=== PATIENT | female | born 1950 | race Caucasian/White ===

== ENCOUNTER → 2017-01-05 | Outpatient (CLI) | payer MEDICARE, OTHER | LOC: MW.CHFP 08:00 | PROVIDERS: ATTEND Emergency Medicine | DX: NODX10 (principal) ==

== ENCOUNTER → 2017-01-12 | Outpatient (CLI) | payer MEDICARE, OTHER | LOC: MW.CHFP 08:00 | PROVIDERS: ATTEND Emergency Medicine | DX: NODX10 (principal) ==

== ENCOUNTER → 2017-01-20 | Outpatient (CLI) | payer MEDICARE, OTHER | LOC: MW.CHFP 08:00 | PROVIDERS: ATTEND Emergency Medicine | DX: NODX10 (principal) ==

== ENCOUNTER → 2017-02-18 | Outpatient (CLI) | payer MEDICARE, OTHER | LOC: MW.CHFP 08:00 | PROVIDERS: ATTEND Emergency Medicine | DX: NODX10 (principal) ==

== ENCOUNTER 2017-06-26 03:12 | Emergency (ER) | payer MEDICARE, OTHER ==
[2017-06-26] MEDS ORDERED: Sodium Chloride 0.9% 1,000 ML IV ONE (04:27)
--- NOTE | 2017-06-26 05:19 | EDM.PDOC ---
ED HPI GENERAL MEDICAL PROBLEM - General Chief Complaint: General Stated Complaint: LOW BLOOD SUGAR Time Seen by Provider: 06/26/17 04:14 Source of Information: Reports: Patient History Limitations: Reports: No Limitations - History of Present Illness INITIAL COMMENTS - FREE TEXT/NARRATIVE: HISTORY AND PHYSICAL: History of present illness: [67-year-old female with a history of diabetes now presents emergency departmentafter an episode of hypoglycemia. Patient states she awakened and felt funny so she checked her glucose it was 53. She ateto chocolate bars and drank a Coke and then came to the emergency department. She states she still feels a little funny. No chest pain or shortness of breath. No headache or stiff neck denies abdominal pain normal bowel bladder habits. No focal neurologic complaint] Review of systems: As per history of present illness and below otherwise all systems reviewed and negative. Past medical history: As per history of present illness and as reviewed below otherwise noncontributory. Surgical history: As per history of present illness and as reviewed below otherwise noncontributory. Social history: No reported history of drug or alcohol abuse. Family history: As per history of present illness and as reviewed below otherwise noncontributory. Physical exam:well-appearing 67-year-old female no acute distress mildly dry mucous membranes otherwise benign exam HEENT: Atraumatic, normocephalic, pupils reactive, negative for conjunctival pallor or scleral icterus, mucous membranes moist, throat clear, neck supple, nontender, trachea midline. Lungs: Clear to auscultation, breath sounds equal bilaterally, chest nontender. Heart: S1S2, regular, negative for clicks, rubs, or JVD. Abdomen: Soft, nondistended, nontender. Negative for masses or hepatosplenomegaly. Negative for costovertebral tenderness. Pelvis: Stable nontender. Genitourinary: Deferred. Rectal: Deferred. Extremities: Atraumatic, negative for cords or calf pain. Neurovascular unremarkable. Neuro: Awake, alert, oriented. Cranial nerves II through XII unremarkable. Cerebellum unremarkable. Motor and sensory unremarkable throughout. Exam nonfocal. Diagnostics: [EKG normal sinus rhythm at 61 normal axis no STEMI-Interpreted by me Chest x-ray no acute disease interpreted by me Therapeutics: [IV fluids administered] Impression: [] Plan: [signs and symptoms consistent with symptomatic hypoglycemia and mild dehydration with dry mucous membranes. Urinalysis positive for UTI. Rocephin administered and Keflex will be prescribed.Patient hydratedShe feels baseline after IV fluids. Glucose stable after patient self medication with 2 chocolate bars and a Coca-Cola. No further workup or treatment indicated at this time. Patient agrees with outpatient follow-up and strict return precautions given] Definitive disposition and diagnosis as appropriate pending reevaluation and review of above. no pain Pain Score (Numeric/FACES): 0 - Related Data Allergies Allergy/AdvReac Type Severity Reaction Status Date / Time No Known Allergies Allergy Verified 06/26/17 03:18 Home Meds: Home Meds Ciprofloxacin HCl [Cipro] 500 mg PO BID #14 tablet 09/02/16 [Rx] Insulin Aspart [NovoLOG] units SQ ASDIRECTED 09/02/16 [History] Meclizine [Antivert] 25 mg PO TID PRN #12 tablet 09/02/16 [Rx] Tresiba 28 units SQ BEDTIME 09/02/16 [History] Cephalexin [Keflex] 500 mg PO QID 10 Days #40 capsule 06/26/17 [Rx] Insulin Npl/Insulin Lispro [HumaLOG Mix 50-50 Kwikpen] 1 injection SQ ASDIRECTED 06/26/17 [History] Past Medical History HEENT History: Reports: None Cardiovascular History: Reports: High Cholesterol Respiratory History: Reports: None Gastrointestinal History: Reports: None Genitourinary History: Reports: None 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: Musculoskeletal History: Reports: None Neurological History: Reports: None Psychiatric History: Reports: None Endocrine/Metabolic History: Reports: Diabetes, Type II Hematologic History: Reports: None Immunologic History: Reports: None Oncologic (Cancer) History: Reports: None Dermatologic History: Reports: None - Infectious Disease History Infectious Disease History: Reports: Chicken Pox, Measles, Mumps - Past Surgical History Head Surgeries/Procedures: Reports: None HEENT Surgical History: Reports: None GI Surgical History: Reports: Appendectomy Female Surgical History: Reports: Hysterectomy Social & Family History - Family History Family Medical History: Noncontributory Endocrine/Metabolic: Reports: Diabetes, Type I, Diabetes, type II - Tobacco Use Smoking Status *Q: Never Smoker Second Hand Smoke Exposure: No - Caffeine Use Caffeine Use: Reports: Soda - Recreational Drug Use Recreational Drug Use: No ED ROS GENERAL - Review of Systems Review Of Systems: See Below (history of present illness) ED EXAM, GENERAL - Physical Exam Exam: See Below (history of present illness) Course - Vital Signs Last Recorded V/S: Last Vital Signs Temp 36.6 C 06/26/17 04:59 Pulse 62 06/26/17 04:59 Resp 17 06/26/17 04:59 BP 153/71 H 06/26/17 04:59 Pulse Ox 98 06/26/17 04:59 - Orders/Labs/Meds Orders: Active Orders 24 hr Category Date Time Status EKG Documentation Completion [RC] STAT Care 06/26/17 04:26 Active Chest 1V Frontal [CR] Stat Exams 06/26/17 05:26 Taken cefTRIAXone [Rocephin in Dextrose,Iso-Osm 1 GM/50 ML] 1 Med 06/26/17 06:27 Ordered gm Premix Bag 1 bag IV ONETIME Peripheral IV Insertion Adult [OM.PC] Stat Oth 06/26/17 04:26 Ordered Medication Orders Ceftriaxone Sodium/Dextrose 1 (gm/ Premix) 50 mls @ 100 mls/hr IV ONETIME ONE Stop: 06/26/17 06:56 Labs: Laboratory Tests 06/26/17 06/26/17 06/26/17 Range/Units 03:21 04:45 04:45 WBC 12.40 H (4.0-11.0) K/uL RBC 4.28 L (4.30-5.90) M/uL Hgb 12.6 (12.0-16.0) g/dL Hct 38.7 (36.0-46.0) % MCV 90.4 (80.0-98.0) fL MCH 29.4 (27.0-32.0) pg MCHC 32.6 (31.0-37.0) g/dL RDW Std Deviation 48.4 (28.0-62.0) fl RDW Coeff of Mehreen 15 (11.0-15.0) % Plt Count 188 (150-400) K/uL MPV 8.70 (7.40-12.00) fL Neut % (Auto) 81.6 H (48.0-80.0) % Lymph % (Auto) 11.9 L (16.0-40.0) % [place] % (Auto) 4.5 (0.0-15.0) % Eos % (Auto) 1.7 (0.0-7.0) % Baso % (Auto) 0.3 (0.0-1.5) % Neut # (Auto) 10.1 H (1.4-5.7) K/uL Lymph # (Auto) 1.5 (0.6-2.4) K/uL [place] # (Auto) 0.6 (0.0-0.8) K/uL Eos # (Auto) 0.2 (0.0-0.7) K/uL Baso # (Auto) 0.0 (0.0-0.1) K/uL Nucleated RBC % 0.0 /100WBC Nucleated RBCs # 0 K/uL Sodium 142 (136-146) mmol/L Potassium 4.0 (3.5-5.1) mmol/L Chloride 110 (98-110) mmol/L Carbon Dioxide 25 (21-31) mmol/L BUN 17 (6.0-23.0) mg/dL Creatinine 1.3 (0.6-1.5) mg/dL Est Cr Clr Drug Dosing 36.75 mL/min Estimated GFR (MDRD) 40.6 ml/min Glucose 159 H (60-110) mg/dL POC Glucose 247 H (60-110) mg/dL Calcium 9.1 (8.8-10.8) mg/dL Total Bilirubin 0.3 (0.1-1.5) mg/dL AST 16 (5-40) IU/L ALT 17 (8-54) IU/L Alkaline Phosphatase 89 (40-150) Troponin I (0.0-0.29) NG/ML Total Protein 6.7 (6.0-8.0) g/dL Albumin 3.8 (3.4-4.8) g/dL Globulin 2.9 (2.0-3.5) g/dL Albumin/Globulin Ratio 1.3 (1.3-2.8) Urine Color Urine Appearance Urine pH (5.0-8.0) Ur Specific [place] (1.001-1.035) Urine Protein (NEGATIVE) mg/dL Urine Glucose (UA) (NEGATIVE) mg/dL Urine Ketones (NEGATIVE) mg/dL Urine Occult Blood (NEGATIVE) Urine Nitrite (NEGATIVE) Urine Bilirubin (NEGATIVE) Urine Urobilinogen (<2.0) EU/dL Ur Leukocyte Esterase (NEGATIVE) Urine RBC (0-2/HPF) Urine WBC (0-5/HPF) Ur Epithelial Cells (NONE-FEW) Urine Bacteria (NEGATIVE) 06/26/17 06/26/17 Range/Units 04:45 05:03 WBC (4.0-11.0) K/uL RBC (4.30-5.90) M/uL Hgb (12.0-16.0) g/dL Hct (36.0-46.0) % MCV (80.0-98.0) fL MCH (27.0-32.0) pg MCHC (31.0-37.0) g/dL RDW Std Deviation (28.0-62.0) fl RDW Coeff of Mehreen (11.0-15.0) % Plt Count (150-400) K/uL MPV (7.40-12.00) fL Neut % (Auto) (48.0-80.0) % Lymph % (Auto) (16.0-40.0) % [place] % (Auto) (0.0-15.0) % Eos % (Auto) (0.0-7.0) % Baso % (Auto) (0.0-1.5) % Neut # (Auto) (1.4-5.7) K/uL Lymph # (Auto) (0.6-2.4) K/uL [place] # (Auto) (0.0-0.8) K/uL Eos # (Auto) (0.0-0.7) K/uL Baso # (Auto) (0.0-0.1) K/uL Nucleated RBC % /100WBC Nucleated RBCs # K/uL Sodium (136-146) mmol/L Potassium (3.5-5.1) mmol/L Chloride (98-110) mmol/L Carbon Dioxide (21-31) mmol/L BUN (6.0-23.0) mg/dL Creatinine (0.6-1.5) mg/dL Est Cr Clr Drug Dosing mL/min Estimated GFR (MDRD) ml/min Glucose (60-110) mg/dL POC Glucose (60-110) mg/dL Calcium (8.8-10.8) mg/dL Total Bilirubin (0.1-1.5) mg/dL AST (5-40) IU/L ALT (8-54) IU/L Alkaline Phosphatase (40-150) Troponin I < 0.10 (0.0-0.29) NG/ML Total Protein (6.0-8.0) g/dL Albumin (3.4-4.8) g/dL Globulin (2.0-3.5) g/dL Albumin/Globulin Ratio (1.3-2.8) Urine Color YELLOW Urine Appearance SLT CLOUDY Urine pH 5.0 (5.0-8.0) Ur Specific [place] >= 1.030 (1.001-1.035) Urine Protein NEGATIVE (NEGATIVE) mg/dL Urine Glucose (UA) NEGATIVE (NEGATIVE) mg/dL Urine Ketones NEGATIVE (NEGATIVE) mg/dL Urine Occult Blood TRACE-LYSED (NEGATIVE) Urine Nitrite NEGATIVE (NEGATIVE) Urine Bilirubin NEGATIVE (NEGATIVE) Urine Urobilinogen 0.2 (<2.0) EU/dL Ur Leukocyte Esterase MODERATE (NEGATIVE) Urine RBC 1-5 (0-2/HPF) Urine WBC 40-50 (0-5/HPF) Ur Epithelial Cells FEW (NONE-FEW) Urine Bacteria 2+ H (NEGATIVE) Meds: Medications Generic Name Dose Route Start Last Admin Trade Name Freq PRN Reason Stop Dose Admin Ceftriaxone Sodium/Dextrose 1 50 mls @ 100 mls/hr 06/26/17 06:27 gm/ Premix IV 06/26/17 06:56 ONETIME ONE Discontinued Medications Generic Name Dose Route Start Last Admin Trade Name Freq PRN Reason Stop Dose Admin Sodium Chloride 1,000 mls @ 999 mls/hr 06/26/17 04:27 06/26/17 04:55 Normal Saline IV 06/26/17 05:27 999 mls/hr STAT ONE Administration Departure - Departure Time of Disposition: 06:30 Disposition: Home, Self-Care 01 Condition: Good Clinical Impression: Hypoglycemia, Hypoglycemia associated with diabetes, Mild dehydration Urinary tract infection Qualifiers: Urinary tract infection type: site unspecified Hematuria presence: without hematuria Qualified Code(s): N39.0 - Urinary tract infection, site not specified - Discharge Information Referrals: PCP,None [Primary Care Provider] - Forms: ED Department Discharge Additional Instructions: You have experienced symptomatic hypoglycemia this evening. This means your blood glucose was low enough to cause you to feel symptoms in this case of headedness. You were also mildly dehydrated and we have addressed that with IV fluids. Continue your diabetic regimen as previously prescribed and be sure to be vigilant about eating adequately in the setting of insulin use. closely surveilled your blood glucose frequently and Follow-up with your doctor in the morning and return immediately for new severe or worsening symptoms. Your urinalysis suggested that you have urinary tract infection. Finish Keflex as prescribed and follow-up with your doctor. - My Orders Last 24 Hours: My Active Orders 06/26/17 04:26 EKG Documentation Completion [RC] STAT Peripheral IV Insertion Adult [OM.PC] Stat 06/26/17 05:26 Chest 1V Frontal [CR] Stat 06/26/17 06:27 cefTRIAXone [Rocephin in Dextrose,Iso-Osm 1 GM/50 ML] 1 gm Premix Bag 1 bag IV ONETIME - Assessment/Plan Last 24 Hours: My Active Orders 06/26/17 04:26 EKG Documentation Completion [RC] STAT Peripheral IV Insertion Adult [OM.PC] Stat 06/26/17 05:26 Chest 1V Frontal [CR] Stat 06/26/17 06:27 cefTRIAXone [Rocephin in Dextrose,Iso-Osm 1 GM/50 ML] 1 gm Premix Bag 1 bag IV ONETIME
[2017-06-26] MEDS ORDERED: cefTRIAXone 1 GM in Premix Bag 1 BAG IV ONE (06:27)
[2017-06-26 07:14] VITALS: BP 140/65
--- NOTE | 2017-06-27 14:32 | CR ---
EXAM DATE: 06/26/17 PATIENT'S AGE: 67 Patient: GEOVANNA GONZALES Facility: [place], [place] Site . Site : 1950 Study: XRay Chest [id number]/1/2017 5:50:31 AM Ordering Physician: Jarod Franklin Final Report: Indication: Dizziness and low blood sugar. Technique: Upright portable AP image of the chest. Comparison: 05/05/2011. Findings: New medial right base opacity due to atelectasis or pneumonia. Lungs otherwise clear. No pleural effusion. Heart size and pulmonary vasculature within normal limits. No significant bony abnormality. Impression: New medial right base opacity due to atelectasis or pneumonia. Dictated by Tre Rick MD @ Jun 26 2017 7:30AM (Electronic Signature) Report Signed by Proxy. DAVID
== END 2017-06-26 07:10 | disposition home or self-care (01) ==
LOC: MW.ED 03:12
DX: E11.649 Type 2 diabetes mellitus with hypoglycemia without coma (principal); E86.0 Dehydration; N39.0 Urinary tract infection, site not specified; Z79.4 Long term (current) use of insulin; Z79.899 Other long term (current) drug therapy; Z90.49 Acquired absence of other specified parts of digestive tract; Z90.710 Acquired absence of both cervix and uterus
CPT/HCPCS: 71010; 80053; 81001; 82962; 84484; 85025; 93005; 96361; 96365; 99284; J0696; J7040; 99283

== ENCOUNTER 2017-07-30 02:56 | Emergency (ER) | payer MEDICARE, OTHER ==
[2017-07-30] MEDS ORDERED: Sodium Chloride 0.9% 1,000 ML IV ONE (03:09)
--- NOTE | 2017-07-30 03:12 | EDM.PDOC ---
ED HPI GENERAL MEDICAL PROBLEM - General Chief Complaint: Neuro Symptoms/Deficits Stated Complaint: FEELING ILL Time Seen by Provider: 07/30/17 03:10 - History of Present Illness INITIAL COMMENTS - FREE TEXT/NARRATIVE: HISTORY AND PHYSICAL: History of present illness: Patient is a 67-year-old white female history of diabetes who presents with concern of dizziness this is vaguely describes she noted it tonight when she was folding clothes and doing some routine housework from prior review of records seems she has had this in the past has been on meclizine she denies numbness weakness chest pain shortness breath or other concern Review of systems: As per history of present illness and below otherwise all systems reviewed and negative. Past medical history: As per history of present illness and as reviewed below otherwise noncontributory. Surgical history: As per history of present illness and as reviewed below otherwise noncontributory. Social history: No reported history of drug or alcohol abuse. Family history: As per history of present illness and as reviewed below otherwise noncontributory. Physical exam: HEENT: Atraumatic, normocephalic, pupils reactive, negative for conjunctival pallor or scleral icterus, mucous membranes moist, throat clear, neck supple, nontender, trachea midline. Lungs: Clear to auscultation, breath sounds equal bilaterally, chest nontender. Heart: S1S2, regular, negative for clicks, rubs, or JVD. Abdomen: Soft, nondistended, nontender. Negative for masses or hepatosplenomegaly. Negative for costovertebral tenderness. Pelvis: Stable nontender. Genitourinary: Deferred. Rectal: Deferred. Extremities: Atraumatic, negative for cords or calf pain. Neurovascular unremarkable. Neuro: Awake, alert, oriented. Cranial nerves II through XII unremarkable. Cerebellum unremarkable. Motor and sensory unremarkable throughout. Exam nonfocal. Diagnostics: CBC CMP troponin PT/INR chest x-ray EKG CT brain Therapeutics: Normal saline 1 L bolus Impression: #1 dizziness #2 history of diabetes Definitive disposition and diagnosis as appropriate pending reevaluation and review of above. - Related Data Allergies Allergy/AdvReac Type Severity Reaction Status Date / Time No Known Allergies Allergy Verified 07/30/17 03:14 Home Meds: Home Meds Insulin Aspart [NovoLOG] 0 units SQ ASDIRECTED 09/02/16 [History] Tresiba 28 units SQ BEDTIME 09/02/16 [History] Insulin Npl/Insulin Lispro [HumaLOG Mix 50-50 Kwikpen] 0 unit SQ ASDIRECTED 10/12 [History] Simvastatin [Zocor] 0 mg PO DAILY 07/30/17 [History] Past Medical History HEENT History: Reports: None Cardiovascular History: Reports: High Cholesterol Respiratory History: Reports: None Gastrointestinal History: Reports: None Genitourinary History: Reports: None 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: Musculoskeletal History: Reports: None Neurological History: Reports: None Psychiatric History: Reports: None Endocrine/Metabolic History: Reports: Diabetes, Type II Hematologic History: Reports: None Immunologic History: Reports: None Oncologic (Cancer) History: Reports: None Dermatologic History: Reports: None - Infectious Disease History Infectious Disease History: Reports: Chicken Pox, Measles, Mumps - Past Surgical History Head Surgeries/Procedures: Reports: None HEENT Surgical History: Reports: None GI Surgical History: Reports: Appendectomy Female Surgical History: Reports: Hysterectomy Social & Family History - Family History Family Medical History: Noncontributory Endocrine/Metabolic: Reports: Diabetes, Type I, Diabetes, type II - Tobacco Use Smoking Status *Q: Never Smoker Second Hand Smoke Exposure: No - Caffeine Use Caffeine Use: Reports: Soda - Recreational Drug Use Recreational Drug Use: No ED ROS GENERAL - Review of Systems Review Of Systems: ROS reveals no pertinent complaints other than HPI. ED EXAM, GENERAL - Physical Exam Exam: See Below (See dictated) Course - Vital Signs Text/Narrative:: Patient's course in emergency room is nonremarkable I reviewed diagnostics with patient and discussed admission for observation patient declined and requested discharge home she feels markedly improved will follow up with primary medical doctor Last Recorded V/S: Last Vital Signs Temp 35.9 C 07/30/17 03:05 Pulse 73 07/30/17 03:05 Resp 18 07/30/17 03:05 BP 142/70 H 07/30/17 03:05 Pulse Ox 98 07/30/17 03:05 - Orders/Labs/Meds Orders: Active Orders 24 hr Category Date Time Status Chest 1V Frontal [CR] Stat Exams 07/30/17 03:11 Taken Head wo Cont [CT] Stat Exams 07/30/17 03:11 Taken Labs: Laboratory Tests 07/30/17 07/30/17 07/30/17 Range/Units 04:00 04:00 04:00 WBC 8.44 (4.0-11.0) K/uL RBC 4.16 L (4.30-5.90) M/uL Hgb 12.1 (12.0-16.0) g/dL Hct 37.6 (36.0-46.0) % MCV 90.4 (80.0-98.0) fL MCH 29.1 (27.0-32.0) pg MCHC 32.2 (31.0-37.0) g/dL RDW Std Deviation 46.5 (28.0-62.0) fl RDW Coeff of Mehreen 14 (11.0-15.0) % Plt Count 191 (150-400) K/uL MPV 8.50 (7.40-12.00) fL Neut % (Auto) 82.3 H (48.0-80.0) % Lymph % (Auto) 10.8 L (16.0-40.0) % [place] % (Auto) 6.0 (0.0-15.0) % Eos % (Auto) 0.5 (0.0-7.0) % Baso % (Auto) 0.4 (0.0-1.5) % Neut # (Auto) 7.0 H (1.4-5.7) K/uL Lymph # (Auto) 0.9 (0.6-2.4) K/uL [place] # (Auto) 0.5 (0.0-0.8) K/uL Eos # (Auto) 0.0 (0.0-0.7) K/uL Baso # (Auto) 0.0 (0.0-0.1) K/uL Nucleated RBC % 0.0 /100WBC Nucleated RBCs # 0 K/uL INR 0.99 (0.86-1.11) Sodium 142 (136-146) mmol/L Potassium 4.2 (3.5-5.1) mmol/L Chloride 108 (98-110) mmol/L Carbon Dioxide 25 (21-31) mmol/L BUN 11 (6.0-23.0) mg/dL Creatinine 1.1 (0.6-1.5) mg/dL Est Cr Clr Drug Dosing 43.43 mL/min Estimated GFR (MDRD) 49.2 ml/min Glucose 114 H (60-110) mg/dL Calcium 9.0 (8.8-10.8) mg/dL Total Bilirubin 0.6 (0.1-1.5) mg/dL AST 25 (5-40) IU/L ALT 21 (8-54) IU/L Alkaline Phosphatase 76 (40-150) Troponin I < 0.10 (0.0-0.29) NG/ML Total Protein 6.2 (6.0-8.0) g/dL Albumin 3.5 (3.4-4.8) g/dL Globulin 2.7 (2.0-3.5) g/dL Albumin/Globulin Ratio 1.3 (1.3-2.8) Meds: Medications Discontinued Medications Generic Name Dose Route Start Last Admin Trade Name Freq PRN Reason Stop Dose Admin Sodium Chloride 1,000 mls @ 999 mls/hr 07/30/17 03:09 07/30/17 03:25 Normal Saline IV 07/30/17 04:09 999 mls/hr .Bolus ONE Administration Departure - Departure Time of Disposition: 06:46 Disposition: Home, Self-Care 01 Condition: Good Clinical Impression: Dizziness, History of diabetes mellitus - Discharge Information Referrals: PCP,None [Primary Care Provider] - Forms: ED Department Discharge Additional Instructions: The following information is given to patients seen in the emergency department who are being discharged to home. This information is to outline your options for follow-up care. We provide all patients seen in our emergency department with a follow-up referral. The need for follow-up, as well as the timing and circumstances, are variable depending upon the specifics of your emergency department visit. If you don't have a primary care physician on staff, we will provide you with a referral. We always advise you to contact your personal physician following an emergency department visit to inform them of the circumstance of the visit and for follow-up with them and/or the need for any referrals to a consulting specialist. The emergency department will also refer you to a specialist when appropriate. This referral assures that you have the opportunity for followup care with a specialist. All of these measure are taken in an effort to provide you with optimal care, which includes your followup. Under all circumstances we always encourage you to contact your private physician who remains a resource for coordinating your care. When calling for followup care, please make the office aware that this follow-up is from your recent emergency room visit. If for any reason you are refused follow-up, please contact the [facility] emergency department at and asked to speak to the emergency department charge nurse. Follow-up primary medical doctor 1-2 days return as needed as discussed continue current medication - My Orders Last 24 Hours: My Active Orders 07/30/17 03:11 Chest 1V Frontal [CR] Stat Head wo Cont [CT] Stat - Assessment/Plan Last 24 Hours: My Active Orders 07/30/17 03:11 Chest 1V Frontal [CR] Stat Head wo Cont [CT] Stat
[2017-07-30 04:33] LABS: CHLORIDE,CL 108 mmol/L (98-110); SODIUM,NA 142 mmol/L (136-146)
[2017-07-30 07:46] VITALS: BP 156/68
--- NOTE | 2017-07-30 14:38 | CR ---
EXAM DATE: 07/30/17 PATIENT'S AGE: 67 Patient: GEOVANNA GONZALES Facility: [place], [place] Site . Site : 1950 Study: XRay Chest [id number] 4:33:19 AM Ordering Physician: Sorin Franklin Final Report: Indication: Dizziness Technique: Chest 1 view Comparison: June 26, 2017 Findings/Impression: Stable cardiomediastinal silhouette. Clear lungs and pleural spaces. Osseous structures are intact. Dictated by Arlette Poole MD @ Jul 30 2017 4:51AM (Electronic Signature) Report Signed by Proxy. [facility] SYSTEMDolores
--- NOTE | 2017-07-30 14:39 | CT ---
EXAM DATE: 07/30/17 PATIENT'S AGE: 67 Patient: GEOVANNA GONZALES Facility: [place], [place] Site . Site : 1950 Study: CT Head [id number]/4/2017 5:01:37 AM Ordering Physician: Sorin Frankiln Final Report: INDICATION: Dizziness TECHNIQUE: Head CT without contrast. COMPARISON: September 02, 2016 FINDINGS: CSF spaces: Within normal limits for age. Brain parenchyma: There are nonspecific low attenuation white matter changes consistent with chronic microvascular disease. No sign of mass, hemorrhage, or midline shift. Remote lacunar infarction in the left basal ganglia. Skull base and calvarium: The visualized paranasal sinuses and mastoid air cells demonstrate no acute or significant findings. The visualized orbits are grossly unremarkable. No skull fractures. There is intracranial atherosclerosis. IMPRESSION: 1. No acute findings. 2. Nonspecific white matter disease, typical of chronic microvascular disease. Please note that all CT scans at this facility use dose modulation, iterative reconstruction, and/or weight-based dosing when appropriate to reduce radiation dose to as low as reasonably achievable. Dictated by Arlette Poole MD @ Jul 30 2017 5:53AM (Electronic Signature) Report Signed by Proxy. [facility]
== END 2017-07-30 07:15 | disposition home or self-care (01) ==
LOC: MW.ED 02:56
DX: R42 Dizziness and giddiness (principal); E11.9 Type 2 diabetes mellitus without complications; Z79.4 Long term (current) use of insulin
CPT/HCPCS: 36415; 70450; 71010; 80053; 84484; 85025; 85610; 93005; 96360; 96361; 99284; J7040; 99283

== ENCOUNTER 2018-03-29 15:40 | Emergency (ER) | payer MEDICARE, OTHER ==
[2018-03-29] MEDS ORDERED: Ondansetron 4 MG/2 ML SDV IVPUSH ONE (16:25)
[2018-03-29] MEDS ORDERED: Ketorolac 30 MG/ML SDV IVPUSH ONE (16:25)
--- NOTE | 2018-03-29 16:26 | EDM.PDOC ---
ED HPI GENERAL MEDICAL PROBLEM - General Chief Complaint: Flank Pain Stated Complaint: LOWER BACK PAIN Time Seen by Provider: 03/29/18 16:26 Source of Information: Reports: Patient - History of Present Illness INITIAL COMMENTS - FREE TEXT/NARRATIVE: HISTORY AND PHYSICAL: History of present illness: [Patient was playing with her dog 2 days prior which she states is a "hunting dog "animal she does not know the breed, however a yanked her leash she now complains of low back pain/flank pain on the right side she rates 4 out of 10 nonradiating no fever nausea vomiting chills sweats no chest pain shortness breath headache dizziness palpitation about a urine symptoms of footdrop or saddle anesthesia ] Review of systems: As per history of present illness and below otherwise all systems reviewed and negative. Past medical history: As per history of present illness and as reviewed below otherwise noncontributory. Surgical history: As per history of present illness and as reviewed below otherwise noncontributory. Social history: No reported history of drug or alcohol abuse. Family history: As per history of present illness and as reviewed below otherwise noncontributory. Physical exam: HEENT: Atraumatic, normocephalic, pupils reactive, negative for conjunctival pallor or scleral icterus, mucous membranes moist, throat clear, neck supple, nontender, trachea midline. Lungs: Clear to auscultation, breath sounds equal bilaterally, chest nontender. Heart: S1S2, regular, negative for clicks, rubs, or JVD. Abdomen: Soft, nondistended, nontender. Negative for masses or hepatosplenomegaly. Negative for costovertebral tenderness. Pelvis: Stable nontender. Genitourinary: Deferred. Rectal: Deferred. Extremities: Atraumatic, negative for cords or calf pain. Neurovascular unremarkable. Neuro: Awake, alert, oriented. Cranial nerves II through XII unremarkable. Cerebellum unremarkable. Motor and sensory unremarkable throughout. Exam nonfocal. Musculoskeletal I can reproduce pain along right paraspinous muscle kidney punch is negative Diagnostics: Lumbar spine 2 view UA with culture ] Therapeutics: Toradol 30 mg IM ] Rest ice ibuprofen Macrobid Impression: Low back pain Subclinical UTI Definitive disposition and diagnosis as appropriate pending reevaluation and review of above. 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: Musculoskeletal History: Reports: None Neurological History: Reports: None Psychiatric History: Reports: None Endocrine/Metabolic History: Reports: Diabetes, Type II Hematologic History: Reports: None Immunologic History: Reports: None Oncologic (Cancer) History: Reports: None Dermatologic History: Reports: None - Infectious Disease History Infectious Disease History: Reports: Chicken Pox, Measles, Mumps - Past Surgical History Head Surgeries/Procedures: Reports: None HEENT Surgical History: Reports: None GI Surgical History: Reports: Appendectomy Female Surgical History: Reports: Hysterectomy Social & Family History - Family History Family Medical History: Noncontributory Endocrine/Metabolic: Reports: Diabetes, Type I, Diabetes, type II - Tobacco Use Smoking Status *Q: Never Smoker - Caffeine Use Caffeine Use: Reports: Soda - Recreational Drug Use Recreational Drug Use: No ED ROS GENERAL - Review of Systems Review Of Systems: See Below ED EXAM, GENERAL - Physical Exam Exam: See Below Course - Vital Signs Last Recorded V/S: Last Vital Signs Temp 97.6 F 03/29/18 16:10 Pulse 80 03/29/18 16:10 Resp 20 03/29/18 16:10 BP 152/92 H 03/29/18 16:10 Pulse Ox 97 03/29/18 16:10 - Orders/Labs/Meds Orders: Active Orders 24 hr Category Date Time Status Lumbar Spine 2 or 3V [CR] Stat Exams 03/29/18 16:39 Taken CULTURE URINE [RM] Stat Lab 03/29/18 16:48 Ordered UA W/MICROSCOPIC [URIN] Stat Lab 03/29/18 16:30 Ordered Labs: Laboratory Tests 03/29/18 Range/Units 16:30 Urine Color YELLOW Urine Appearance CLEAR Urine pH 5.5 (5.0-8.0) Ur Specific [place] 1.025 (1.001-1.035) Urine Protein NEGATIVE (NEGATIVE) mg/dL Urine Glucose (UA) NEGATIVE (NEGATIVE) mg/dL Urine Ketones NEGATIVE (NEGATIVE) mg/dL Urine Occult Blood TRACE-LYSED (NEGATIVE) Urine Nitrite NEGATIVE (NEGATIVE) Urine Bilirubin NEGATIVE (NEGATIVE) Urine Urobilinogen 0.2 (<2.0) EU/dL Ur Leukocyte Esterase NEGATIVE (NEGATIVE) Urine RBC 2-5 (0-2/HPF) Urine WBC 8-10 (0-5/HPF) Ur Epithelial Cells MODERATE (NONE-FEW) Urine Bacteria FEW (NEGATIVE) Meds: Medications Discontinued Medications Generic Name Dose Route Start Last Admin Trade Name Meme PRN Reason Stop Dose Admin Sodium Chloride 500 mls @ 999 mls/hr 03/29/18 16:30 Normal Saline IV STAT SHAYY Ketorolac Tromethamine 30 mg 03/29/18 16:25 Toradol IVPUSH 03/29/18 16:26 ONETIME ONE Ketorolac Tromethamine 30 mg 03/29/18 16:39 Toradol IM 03/29/18 16:40 ONETIME ONE Ondansetron HCl 8 mg 03/29/18 16:25 Zofran IVPUSH 03/29/18 16:26 ONETIME ONE Departure - Departure Time of Disposition: 17:25 Disposition: Home, Self-Care 01 Condition: Good Clinical Impression: UTI, Urinary tract infectious disease, Spasm of lumbar paraspinous muscle - Discharge Information Referrals: PCP,None [Primary Care Provider] - Forms: ED Department Discharge Additional Instructions: The following information is given to patients seen in the emergency department who are being discharged to home. This information is to outline your options for follow-up care. We provide all patients seen in our emergency department with a follow-up referral. The need for follow-up, as well as the timing and circumstances, are variable depending upon the specifics of your emergency department visit. If you don't have a primary care physician on staff, we will provide you with a referral. We always advise you to contact your personal physician following an emergency department visit to inform them of the circumstance of the visit and for follow-up with them and/or the need for any referrals to a consulting specialist. The emergency department will also refer you to a specialist when appropriate. This referral assures that you have the opportunity for follow-up care with a specialist. All of these measure are taken in an effort to provide you with optimal care, which includes your follow-up. Under all circumstances we always encourage you to contact your private physician who remains a resource for coordinating your care. When calling for follow-up care, please make the office aware that this follow-up is from your recent emergency room visit. If for any reason you are refused follow-up, please contact the [facility] emergency department at and asked to speak to the emergency department charge nurse. - My Orders Last 24 Hours: My Active Orders 03/29/18 16:30 UA W/MICROSCOPIC [URIN] Stat 03/29/18 16:39 Lumbar Spine 2 or 3V [CR] Stat 03/29/18 16:48 CULTURE URINE [RM] Stat - Assessment/Plan Last 24 Hours: My Active Orders 03/29/18 16:30 UA W/MICROSCOPIC [URIN] Stat 03/29/18 16:39 Lumbar Spine 2 or 3V [CR] Stat 03/29/18 16:48 CULTURE URINE [RM] Stat
[2018-03-29] MEDS ORDERED: Sodium Chloride 0.9% 500 ML IV SCH (16:30)
[2018-03-29] MEDS ORDERED: Ketorolac 30 MG/ML SDV IM ONE (16:39)
[2018-03-29 17:55] VITALS: BP 172/88
--- NOTE | 2018-03-30 10:27 | CR ---
EXAM DATE: 03/29/18 PATIENT'S AGE: 68 Patient: GEOVANNA GONZALES Facility: [place], [place] Site . Site : [id number] Study: XRay Spine Lumbar [id number]/4/2018 5:08:28 PM Ordering Physician: Kareem Montenegro Final Report: INDICATION: Back pain. No injury. TECHNIQUE: Lumbar spine 3 view. COMPARISON: None FINDINGS: There are 5 lumbar type vertebral bodies. Vertebral body height and contour are preserved. No acute fracture identified. No suspicious bone lesion. Alignment is maintained. Intervertebral disc space height is grossly preserved. Minimal anterior endplate osteophytic change. There are facet joint degenerative changes at L5- S1. Atherosclerotic vascular calcifications and pelvic phleboliths noted. IMPRESSION: No acute abnormality of the lumbar spine. Dictated by Paco Browne MD @ Mar 29 2018 5:16PM (Electronic Signature) Report Signed by Proxy. DAVID
== END 2018-03-29 17:56 | disposition home or self-care (01) ==
LOC: MW.ED 15:40
DX: N39.0 Urinary tract infection, site not specified (principal); M62.830 Muscle spasm of back; E11.9 Type 2 diabetes mellitus without complications; E78.00 Pure hypercholesterolemia, unspecified; Z79.4 Long term (current) use of insulin
CPT/HCPCS: 72100; 81001; 87086; 96372; 99284; J1885

== ENCOUNTER 2019-02-23 03:36 | Observation (INO) | payer MEDICARE, OTHER ==
[2019-02-23] MEDS ORDERED: Sodium Chloride 0.9% 10 ML Syringe FLUSH PRN (03:52)
[2019-02-23] MEDS ORDERED: Sodium Chloride 0.9% 2.5 ML Syringe FLUSH PRN (03:52)
--- NOTE | 2019-02-23 03:55 | EDM.PDOC ---
ED HPI GENERAL MEDICAL PROBLEM - General Chief Complaint: Neuro Symptoms/Deficits Stated Complaint: DIZZY/LOSS OF BALANCE Time Seen by Provider: 02/23/19 03:51 - History of Present Illness INITIAL COMMENTS - FREE TEXT/NARRATIVE: HISTORY AND PHYSICAL: History of present illness: Patient 68-year-old female presents tonight with a concern of dizziness and generalized weakness she has a history of membranous and insulin-dependent diabetes she states she had a fall several days prior she denies any chest pain shortness of breath nausea vomiting or visual disturbance. There is no fever chills abdominal pain or other complaints she states that her MS is stable and she has no related problems Review of systems: As per history of present illness and below otherwise all systems reviewed and negative. Past medical history: As per history of present illness and as reviewed below otherwise noncontributory. Surgical history: As per history of present illness and as reviewed below otherwise noncontributory. Social history: No reported history of drug or alcohol abuse. Family history: As per history of present illness and as reviewed below otherwise noncontributory. Physical exam: HEENT: Atraumatic, normocephalic, pupils reactive, negative for conjunctival pallor or scleral icterus, mucous membranes moist, throat clear, neck supple, nontender, trachea midline. Lungs: Clear to auscultation, breath sounds equal bilaterally, chest nontender. Heart: S1S2, regular, negative for clicks, rubs, or JVD. Abdomen: Soft, nondistended, nontender. Negative for masses or hepatosplenomegaly. Negative for costovertebral tenderness. Pelvis: Stable nontender. Genitourinary: Deferred. Rectal: Deferred. Extremities: Atraumatic, negative for cords or calf pain. Neurovascular unremarkable. Neuro: Awake, alert, oriented. Follows commands moves all extremities limited but grossly nonfocal examination at her baseline per her friend who accompanied her Diagnostics: CBC CMP UA troponin PT/INR chest x-ray EKG CT brain Therapeutics: IV monitor Impression: #1 dizziness #2 generalized weakness #3 history of MS #4 history of diabetes Definitive disposition and diagnosis as appropriate pending reevaluation and review of above. - Related Data Allergies Allergy/AdvReac Type Severity Reaction Status Date / Time No Known Allergies Allergy Verified 02/23/19 04:11 Home Meds: Home Meds . 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: Musculoskeletal History: Reports: None Neurological History: Reports: MS Psychiatric History: Reports: None Endocrine/Metabolic History: Reports: Diabetes, Type II Hematologic History: Reports: None Immunologic History: Reports: None Oncologic (Cancer) History: Reports: None Dermatologic History: Reports: None - Infectious Disease History Infectious Disease History: Reports: Chicken Pox, Measles - Past Surgical History Head Surgeries/Procedures: Reports: None HEENT Surgical History: Reports: None GI Surgical History: Reports: Appendectomy Social & Family History - Family History Family Medical History: Noncontributory (Both parents had heart disease) Endocrine/Metabolic: Reports: Diabetes, Type I, Diabetes, type II - Caffeine Use Caffeine Use: Reports: None ED ROS GENERAL - Review of Systems Review Of Systems: ROS reveals no pertinent complaints other than HPI. ED EXAM, GENERAL - Physical Exam Exam: See Below (See dictation) Course - Vital Signs Last Recorded V/S: Last Vital Signs Temp 36.3 C 02/23/19 04:00 Pulse 80 02/23/19 04:15 Resp 17 02/23/19 04:15 BP 171/75 H 02/23/19 04:15 Pulse Ox 98 02/23/19 04:15 - Orders/Labs/Meds Orders: Active Orders 24 hr Category Date Time Status Cardiac Monitoring [RC] . DIRECTED Care 02/23/19 03:52 Active EKG Documentation Completion [RC] STAT Care 02/23/19 03:52 Active Pulse Oximetry [RC] ASDIRECTED Care 02/23/19 03:52 Active MAGNESIUM [CHEM] Stat Lab 02/23/19 04:31 Ordered Sodium Chloride 0.9% [Saline Flush] Med 02/23/19 03:52 Active 10 ml FLUSH ASDIRECTED PRN Sodium Chloride 0.9% [Saline Flush] Med 02/23/19 03:52 Active 2.5 ml FLUSH ASDIRECTED PRN Sodium Chloride 0.9% with KCl [Normal Saline with 40 Med 02/23/19 04:45 Active mEq KCl] 1,000 ml IV ASDIRECTED Saline Lock Insert [OM.PC] Stat Oth 02/23/19 03:52 Ordered Medication Orders Potassium Chloride/Sodium Chloride (Normal Saline With 40 Meq Kcl) 1,000 mls @ 250 mls/hr IV ASDIRECTED SHAYY Sodium Chloride (Saline Flush) 10 ml FLUSH ASDIRECTED PRN PRN Reason: Keep Vein Open Sodium Chloride (Saline Flush) 2.5 ml FLUSH ASDIRECTED PRN PRN Reason: Keep Vein Open Labs: Laboratory Tests 02/23/19 02/23/19 02/23/19 Range/Units 03:44 03:44 03:44 WBC 12.45 H (4.0-11.0) K/uL RBC 4.94 (4.30-5.90) M/uL Hgb 14.3 (12.0-16.0) g/dL Hct 42.9 (36.0-46.0) % MCV 86.8 (80.0-98.0) fL MCH 28.9 (27.0-32.0) pg MCHC 33.3 (31.0-37.0) g/dL RDW Std Deviation 42.8 (28.0-62.0) fl RDW Coeff of Mehreen 14 (11.0-15.0) % Plt Count 209 (150-400) K/uL MPV 8.90 (7.40-12.00) fL Neut % (Auto) 55.5 (48.0-80.0) % Lymph % (Auto) 32.8 (16.0-40.0) % Yancey % (Auto) 7.6 (0.0-15.0) % Eos % (Auto) 3.6 (0.0-7.0) % Baso % (Auto) 0.5 (0.0-1.5) % Neut # (Auto) 6.9 H (1.4-5.7) K/uL Lymph # (Auto) 4.1 H (0.6-2.4) K/uL Yancey # (Auto) 1.0 H (0.0-0.8) K/uL Eos # (Auto) 0.5 (0.0-0.7) K/uL Baso # (Auto) 0.1 (0.0-0.1) K/uL Nucleated RBC % 0.0 /100WBC Nucleated RBCs # 0 K/uL INR 0.94 Sodium 143 (136-145) mmol/L Potassium 2.8 L (3.5-5.1) mmol/L Chloride 106 (98-107) mmol/L Carbon Dioxide 26.9 (21.0-32.0) mmol/L BUN 8 (7.0-18.0) mg/dL Creatinine 1.1 H (0.6-1.0) mg/dL Est Cr Clr Drug Dosing TNP Estimated GFR (MDRD) 49.1 ml/min Glucose 74 (74-106) mg/dL Calcium 9.0 (8.5-10.1) mg/dL Total Bilirubin 0.4 (0.2-1.0) mg/dL AST 13 L (15-37) IU/L ALT 19 (14-63) IU/L Alkaline Phosphatase 116 (46-116) U/L Troponin I < 0.050 (0.000-0.056) ng/mL Total Protein 7.2 (6.4-8.2) g/dL Albumin 3.6 (3.4-5.0) g/dL Globulin 3.6 (2.6-4.0) g/dL Albumin/Globulin Ratio 1.0 (0.9-1.6) TSH 3rd Generation 7.52 H (0.36-3.74) uIU/mL Urine Color Urine Appearance Urine pH (5.0-8.0) Ur Specific [place] (1.001-1.035) Urine Protein (NEGATIVE) mg/dL Urine Glucose (UA) (NEGATIVE) mg/dL Urine Ketones (NEGATIVE) mg/dL Urine Occult Blood (NEGATIVE) Urine Nitrite (NEGATIVE) Urine Bilirubin (NEGATIVE) Urine Urobilinogen (<2.0) EU/dL Ur Leukocyte Esterase (NEGATIVE) Urine RBC (0-2/HPF) Urine WBC (0-5/HPF) Ur Epithelial Cells (NONE-FEW) Urine Bacteria (NEGATIVE) Urine Mucus (NONE-MOD) 02/23/19 Range/Units 04:08 WBC (4.0-11.0) K/uL RBC (4.30-5.90) M/uL Hgb (12.0-16.0) g/dL Hct (36.0-46.0) % MCV (80.0-98.0) fL MCH (27.0-32.0) pg MCHC (31.0-37.0) g/dL RDW Std Deviation (28.0-62.0) fl RDW Coeff of Mehreen (11.0-15.0) % Plt Count (150-400) K/uL MPV (7.40-12.00) fL Neut % (Auto) (48.0-80.0) % Lymph % (Auto) (16.0-40.0) % Yancey % (Auto) (0.0-15.0) % Eos % (Auto) (0.0-7.0) % Baso % (Auto) (0.0-1.5) % Neut # (Auto) (1.4-5.7) K/uL Lymph # (Auto) (0.6-2.4) K/uL [place]ancey # (Auto) (0.0-0.8) K/uL Eos # (Auto) (0.0-0.7) K/uL Baso # (Auto) (0.0-0.1) K/uL Nucleated RBC % /100WBC Nucleated RBCs # K/uL INR Sodium (136-145) mmol/L Potassium (3.5-5.1) mmol/L Chloride (98-107) mmol/L Carbon Dioxide (21.0-32.0) mmol/L BUN (7.0-18.0) mg/dL Creatinine (0.6-1.0) mg/dL Est Cr Clr Drug Dosing Estimated GFR (MDRD) ml/min Glucose (74-106) mg/dL Calcium (8.5-10.1) mg/dL Total Bilirubin (0.2-1.0) mg/dL AST (15-37) IU/L ALT (14-63) IU/L Alkaline Phosphatase (46-116) U/L Troponin I (0.000-0.056) ng/mL Total Protein (6.4-8.2) g/dL Albumin (3.4-5.0) g/dL Globulin (2.6-4.0) g/dL Albumin/Globulin Ratio (0.9-1.6) TSH 3rd Generation (0.36-3.74) uIU/mL Urine Color YELLOW Urine Appearance CLEAR Urine pH 6.0 (5.0-8.0) Ur Specific [place] <= 1.005 (1.001-1.035) Urine Protein NEGATIVE (NEGATIVE) mg/dL Urine Glucose (UA) NEGATIVE (NEGATIVE) mg/dL Urine Ketones NEGATIVE (NEGATIVE) mg/dL Urine Occult Blood TRACE-INTACT H (NEGATIVE) Urine Nitrite NEGATIVE (NEGATIVE) Urine Bilirubin NEGATIVE (NEGATIVE) Urine Urobilinogen 0.2 (<2.0) EU/dL Ur Leukocyte Esterase NEGATIVE (NEGATIVE) Urine RBC NONE SEEN (0-2/HPF) Urine WBC 0-1 (0-5/HPF) Ur Epithelial Cells FEW (NONE-FEW) Urine Bacteria FEW (NEGATIVE) Urine Mucus LIGHT (NONE-MOD) Meds: Medications Generic Name Dose Route Start Last Admin Trade Name Freq PRN Reason Stop Dose Admin Potassium Chloride/Sodium Chloride 1,000 mls @ 250 mls/hr 02/23/19 04:45 Normal Saline With 40 Meq Kcl IV ASDIRECTED SHAYY Sodium Chloride 10 ml 02/23/19 03:52 Saline Flush FLUSH ASDIRECTED PRN Keep Vein Open Sodium Chloride 2.5 ml 02/23/19 03:52 Saline Flush FLUSH ASDIRECTED PRN Keep Vein Open Departure - Departure Time of Disposition: 04:34 Disposition: Refer to Observation Condition: Good Clinical Impression: Dizziness, Weakness, History of diabetes mellitus, type I, History of multiple sclerosis - Discharge Information Referrals: PCP,None [Primary Care Provider] - Forms: ED Department Discharge - My Orders Last 24 Hours: My Active Orders 02/23/19 03:52 Cardiac Monitoring [RC] . DIRECTED EKG Documentation Completion [RC] STAT Pulse Oximetry [RC] ASDIRECTED Sodium Chloride 0.9% [Saline Flush] 10 ml FLUSH ASDIRECTED PRN Sodium Chloride 0.9% [Saline Flush] 2.5 ml FLUSH ASDIRECTED PRN Saline Lock Insert [OM.PC] Stat 02/23/19 04:31 MAGNESIUM [CHEM] Stat 02/23/19 04:45 Sodium Chloride 0.9% with KCl [Normal Saline with 40 mEq KCl] 1,000 ml IV ASDIRECTED - Assessment/Plan Last 24 Hours: My Active Orders 02/23/19 03:52 Cardiac Monitoring [RC] . DIRECTED EKG Documentation Completion [RC] STAT Pulse Oximetry [RC] ASDIRECTED Sodium Chloride 0.9% [Saline Flush] 10 ml FLUSH ASDIRECTED PRN Sodium Chloride 0.9% [Saline Flush] 2.5 ml FLUSH ASDIRECTED PRN Saline Lock Insert [OM.PC] Stat 02/23/19 04:31 MAGNESIUM [CHEM] Stat 02/23/19 04:45 Sodium Chloride 0.9% with KCl [Normal Saline with 40 mEq KCl] 1,000 ml IV ASDIRECTED
--- NOTE | 2019-02-23 04:16 | CT ---
INDICATION: Weakness, difficulty walking. Dizzy. History of multiple sclerosis TECHNIQUE: CT Head without i.v. contrast. COMPARISON: 10/25/2018 FINDINGS: CSF space: Unremarkable for age. Brain: No evidence of mass, acute infarction or hemorrhage is seen. No mass-effect or midline shift is seen. Mild diffuse cortical atrophy is noted. Severe, stable, patchy regions of low attenuation are present in the periventricular white matter, likely due to chronic microvascular ischemic changes. The brain parenchyma is otherwise normal in appearance with preservation of the olivera-white matter junction. Calvarium: The visualized paranasal sinuses are well aerated. The mastoid air cells are clear. The visualized orbits are grossly unremarkable. The calvarium is unremarkable in appearance with no fractures identified. IMPRESSION: 1. No evidence of acute infarction, intracranial hemorrhage, or mass-effect seen. The findings were discussed with Dr. Rowell at 4:13 AM. Please note that all CT scans at this facility use dose modulation, iterative reconstruction, and/or weight-based dosing when appropriate to reduce radiation dose to as low as reasonably achievable. Dictated by: Adis Torrez MD @ 02/23/2019 04:13:51 (Electronically Signed)
[2019-02-23 04:22] LABS: CHLORIDE,CL 106 mmol/L (98-107); SODIUM,NA 143 mmol/L (136-145)
--- NOTE | 2019-02-23 04:29 | CR ---
INDICATION: dizziness and weakness TECHNIQUE: Chest radiograph 1 view COMPARISON: 10/25/18 FINDINGS: Mediastinum: The mediastinum is normal in appearance. The heart silhouette is normal in size and morphology. Lung: Both lungs are unremarkable in appearance. No sign of pleural effusion seen. No pneumothorax is identified. Musculoskeletal: Unremarkable for age. IMPRESSION: 1. No acute cardiopulmonary disease is seen. Dictated by: Adis Torrez MD @ 02/23/2019 04:28:00 (Electronically Signed)
[2019-02-23] MEDS: Sodium Chloride 0.9% with KCl 1,000 ML IV SCH ×2 (04:41→08:52)
[2019-02-23] MEDS: Insulin Aspart 100 Units/ML 3 ML Pen SUBCUT SCH ×2 (06:53→12:29)
[2019-02-23] MEDS ORDERED: Sodium Chloride 0.9% with KCl 1,000 ML IV SCH (09:24)
[2019-02-23] MEDS ORDERED: Potassium Chloride 20 MEQ Tab.ER PO ONE (09:27)
--- NOTE | 2019-02-23 10:45 | PCM.HP ---
H&P History of Present Illness - General Date of Service: 02/23/19 Admit Problem/Dx: Admission Diagnosis/Problem Admission Diagnosis/Problem Weakness Source of Information: Patient History Limitations: Reports: No Limitations - History of Present Illness Initial Comments - Free Text/Narative: 68F hx of T2DM, Multiple sclerosis, HTN, Hypothyroidism admitted for generalized weakness, dizziness, and hypokalemia. On exam this AM, patient states that she feels better. She denies feeling dizzy now. She states that she takes insulin at home but unaware of the amount. She is not on any medicine at home for HTN, hypothyroidism. Her MS is stable and not being medically treated either. - Related Data Allergies/Adverse Reactions: Allergies Allergy/AdvReac Type Severity Reaction Status Date / Time No Known Allergies Allergy Verified 02/23/19 04:11 Home Medications: Home Meds Lisinopril [Prinivil] 5 mg PO DAILY 30 Days #30 tab 02/23/19 [Rx] Past Medical History HEENT History: Reports: None Cardiovascular History: Reports: High Cholesterol, Hypertension Respiratory History: Reports: None Gastrointestinal History: Reports: None Genitourinary History: Reports: None [employer] History: Reports: Musculoskeletal History: Reports: None Neurological History: Reports: MS Psychiatric History: Reports: None Endocrine/Metabolic History: Reports: Diabetes, Type II Hematologic History: Reports: None Immunologic History: Reports: None Oncologic (Cancer) History: Reports: None Dermatologic History: Reports: None - Infectious Disease History Infectious Disease History: Reports: Chicken Pox, Measles - Past Surgical History Head Surgeries/Procedures: Reports: None HEENT Surgical History: Reports: Cataract Surgery GI Surgical History: Reports: Appendectomy Social & Family History - Family History Family Medical History: Noncontributory Endocrine/Metabolic: Reports: Diabetes, Type I, Diabetes, type II - Tobacco Use Smoking Status *Q: Never Smoker Second Hand Smoke Exposure: No - Caffeine Use Caffeine Use: Reports: Soda - Recreational Drug Use Recreational Drug Use: No H&P Review of Systems - Review of Systems: Review Of Systems: ROS reveals no pertinent complaints other than HPI. Exam - Exam Exam: See Below - Vital Signs Vital Signs: Last Vital Signs Temp 36.1 C 02/23/19 08:00 Pulse 69 02/23/19 08:00 Resp 16 02/23/19 08:00 BP 179/81 H 02/23/19 08:00 Pulse Ox 96 02/23/19 08:00 Weight: 85.5 kg - Exam General: Alert, Oriented, 4 HEENT: PERRLA, Hearing Intact, Mucosa Moist & Chical, Nares Patent, Normal Nasal Septum, Posterior Pharynx Clear, Conjunctiva Clear, EOMI, EACs Clear, TMs Clear Neck: Supple, Trachea Midline, 2 Lungs: Clear to Auscultation, Normal Respiratory Effort Cardiovascular: Regular Rate, Regular Rhythm GI/Abdominal Exam: Normal Bowel Sounds, Soft, Non-Tender, No Organomegaly, No Distention, No Abnormal Bruit, No Mass, Pelvis Stable Back Exam: Normal Inspection, Full Range of Motion, NT Extremities: Normal Inspection, Normal Range of Motion, Non-Tender, No Pedal Edema, Normal Capillary Refill Peripheral Pulses: 2+: Dorsalis Pedis (L), Dorsalis Pedis (R) Skin: Warm, Dry, Intact Neurological: Cranial Nerves Intact, Reflexes Equal Bilateral Neuro Extensive - Mental Status: Alert, Oriented x3, Normal Mood/Affect, Normal Cognition Psychiatric: Alert, Normal Affect, Normal Mood - Patient Data Lab Results Last 24 hrs: Laboratory Results - last 24 hr 02/23/19 02/23/19 02/23/19 Range/Units 03:44 03:44 03:44 WBC 12.45 H (4.0-11.0) K/uL RBC 4.94 (4.30-5.90) M/uL Hgb 14.3 (12.0-16.0) g/dL Hct 42.9 (36.0-46.0) % MCV 86.8 (80.0-98.0) fL MCH 28.9 (27.0-32.0) pg MCHC 33.3 (31.0-37.0) g/dL RDW Std Deviation 42.8 (28.0-62.0) fl RDW Coeff of Mehreen 14 (11.0-15.0) % Plt Count 209 (150-400) K/uL MPV 8.90 (7.40-12.00) fL Neut % (Auto) 55.5 (48.0-80.0) % Lymph % (Auto) 32.8 (16.0-40.0) % Creek % (Auto) 7.6 (0.0-15.0) % Eos % (Auto) 3.6 (0.0-7.0) % Baso % (Auto) 0.5 (0.0-1.5) % Neut # (Auto) 6.9 H (1.4-5.7) K/uL Lymph # (Auto) 4.1 H (0.6-2.4) K/uL Creek # (Auto) 1.0 H (0.0-0.8) K/uL Eos # (Auto) 0.5 (0.0-0.7) K/uL Baso # (Auto) 0.1 (0.0-0.1) K/uL Nucleated RBC % 0.0 /100WBC Nucleated RBCs # 0 K/uL INR 0.94 Sodium 143 (136-145) mmol/L Potassium 2.8 L (3.5-5.1) mmol/L Chloride 106 (98-107) mmol/L Carbon Dioxide 26.9 (21.0-32.0) mmol/L BUN 8 (7.0-18.0) mg/dL Creatinine 1.1 H (0.6-1.0) mg/dL Est Cr Clr Drug Dosing TNP Estimated GFR (MDRD) 49.1 ml/min Glucose 74 (74-106) mg/dL POC Glucose (60-110) mg/dL Calcium 9.0 (8.5-10.1) mg/dL Magnesium (1.8-2.4) mg/dL Total Bilirubin 0.4 (0.2-1.0) mg/dL AST 13 L (15-37) IU/L ALT 19 (14-63) IU/L Alkaline Phosphatase 116 (46-116) U/L Troponin I < 0.050 (0.000-0.056) ng/mL Total Protein 7.2 (6.4-8.2) g/dL Albumin 3.6 (3.4-5.0) g/dL Globulin 3.6 (2.6-4.0) g/dL Albumin/Globulin Ratio 1.0 (0.9-1.6) TSH 3rd Generation 7.52 H (0.36-3.74) uIU/mL Urine Color Urine Appearance Urine pH (5.0-8.0) Ur Specific [place] (1.001-1.035) Urine Protein (NEGATIVE) mg/dL Urine Glucose (UA) (NEGATIVE) mg/dL Urine Ketones (NEGATIVE) mg/dL Urine Occult Blood (NEGATIVE) Urine Nitrite (NEGATIVE) Urine Bilirubin (NEGATIVE) Urine Urobilinogen (<2.0) EU/dL Ur Leukocyte Esterase (NEGATIVE) Urine RBC (0-2/HPF) Urine WBC (0-5/HPF) Ur Epithelial Cells (NONE-FEW) Urine Bacteria (NEGATIVE) Urine Mucus (NONE-MOD) 02/23/19 02/23/19 02/23/19 Range/Units 04:08 04:31 06:43 WBC (4.0-11.0) K/uL RBC (4.30-5.90) M/uL Hgb (12.0-16.0) g/dL Hct (36.0-46.0) % MCV (80.0-98.0) fL MCH (27.0-32.0) pg MCHC (31.0-37.0) g/dL RDW Std Deviation (28.0-62.0) fl RDW Coeff of Mehreen (11.0-15.0) % Plt Count (150-400) K/uL MPV (7.40-12.00) fL Neut % (Auto) (48.0-80.0) % Lymph % (Auto) (16.0-40.0) % Creek % (Auto) (0.0-15.0) % Eos % (Auto) (0.0-7.0) % Baso % (Auto) (0.0-1.5) % Neut # (Auto) (1.4-5.7) K/uL Lymph # (Auto) (0.6-2.4) K/uL Creek # (Auto) (0.0-0.8) K/uL Eos # (Auto) (0.0-0.7) K/uL Baso # (Auto) (0.0-0.1) K/uL Nucleated RBC % /100WBC Nucleated RBCs # K/uL INR Sodium (136-145) mmol/L Potassium (3.5-5.1) mmol/L Chloride (98-107) mmol/L Carbon Dioxide (21.0-32.0) mmol/L BUN (7.0-18.0) mg/dL Creatinine (0.6-1.0) mg/dL Est Cr Clr Drug Dosing Estimated GFR (MDRD) ml/min Glucose (74-106) mg/dL POC Glucose 80 (60-110) mg/dL Calcium (8.5-10.1) mg/dL Magnesium 1.9 (1.8-2.4) mg/dL Total Bilirubin (0.2-1.0) mg/dL AST (15-37) IU/L ALT (14-63) IU/L Alkaline Phosphatase (46-116) U/L Troponin I (0.000-0.056) ng/mL Total Protein (6.4-8.2) g/dL Albumin (3.4-5.0) g/dL Globulin (2.6-4.0) g/dL Albumin/Globulin Ratio (0.9-1.6) TSH 3rd Generation (0.36-3.74) uIU/mL Urine Color YELLOW Urine Appearance CLEAR Urine pH 6.0 (5.0-8.0) Ur Specific [place] <= 1.005 (1.001-1.035) Urine Protein NEGATIVE (NEGATIVE) mg/dL Urine Glucose (UA) NEGATIVE (NEGATIVE) mg/dL Urine Ketones NEGATIVE (NEGATIVE) mg/dL Urine Occult Blood TRACE-INTACT H (NEGATIVE) Urine Nitrite NEGATIVE (NEGATIVE) Urine Bilirubin NEGATIVE (NEGATIVE) Urine Urobilinogen 0.2 (<2.0) EU/dL Ur Leukocyte Esterase NEGATIVE (NEGATIVE) Urine RBC NONE SEEN (0-2/HPF) Urine WBC 0-1 (0-5/HPF) Ur Epithelial Cells FEW (NONE-FEW) Urine Bacteria FEW (NEGATIVE) Urine Mucus LIGHT (NONE-MOD) Result Diagrams: 02/23/19 03:44 02/23/19 13:00 Problem List Initiated/Reviewed/Updated: Yes Orders Last 24hrs: Active Orders 24 hr Category Date Time Status Patient Status [ADT] Stat ADT 02/23/19 04:35 Active Blood Glucose Check, Bedside [RC] TIDAC Care 02/23/19 06:22 Active Cardiac Monitoring [RC] . DIRECTED Care 02/23/19 03:52 Active Neuro Check [RC] Q4HR Care 02/23/19 06:22 Active Pulse Oximetry [RC] ASDIRECTED Care 02/23/19 03:52 Active Telemetry Monitoring [Cardiac Monitoring] [RC] Q8H Care 02/23/19 03:55 Active [employer] Diet [DIET] Diet 02/23/19 Breakfast Active Insulin Aspart [NovoLOG] Med 02/23/19 07:30 Active See Protocol SUBCUT TIDAC Sodium Chloride 0.9% [Saline Flush] Med 02/23/19 03:52 Active 10 ml FLUSH ASDIRECTED PRN Sodium Chloride 0.9% [Saline Flush] Med 02/23/19 03:52 Active 2.5 ml FLUSH ASDIRECTED PRN Sodium Chloride 0.9% with KCl [Normal Saline with 40 Med 02/23/19 09:24 Active mEq KCl] 1,000 ml IV ASDIRECTED Saline Lock Insert [OM.PC] Stat Oth 02/23/19 03:52 Ordered Medication Orders Potassium Chloride/Sodium Chloride (Normal Saline With 40 Meq Kcl) 1,000 mls @ 100 mls/hr IV ASDIRECTED SHAYY Last Admin: 02/23/19 10:24 Dose: 100 mls/hr Insulin Aspart (Novolog) 0 unit SUBCUT TIDAC SHAYY; Protocol Last Admin: 02/23/19 06:53 Dose: Not Given Sodium Chloride (Saline Flush) 10 ml FLUSH ASDIRECTED PRN PRN Reason: Keep Vein Open Sodium Chloride (Saline Flush) 2.5 ml FLUSH ASDIRECTED PRN PRN Reason: Keep Vein Open Assessment/Plan Comment:: Assessment: #1. Hypokalemia #2. Dizziness #3. Generalized weakness #4. History of T2DM, Hypothyroidism, MS, HTN Plan: #1. Refer to observation. Vitals per floor routine. SCD For dvt propyhlaxis #2. IVNS +40meq KCl at 100ml/h #3. 40meq KCl PO x1 #4. Recheck potassium this afternoon #5. Patient states that her symptoms have improved and wants to go home. Discharge summary: Patient wanted to go home and felt comfortable, she had no dizziness or weakness and felt steady on her feet. She will be discharged home on lisinopril with follow up with her PCP. I recommend a repeat BMP at that time.
[2019-02-23 12:26] VITALS: BP 188/109
== END 2019-02-23 15:00 | disposition home or self-care (01) ==
LOC: MW.ED 03:36 → MW.MS 04:46
PROVIDERS: ADMIT Internal Medicine; ATTEND Internal Medicine
DX: E87.6 Hypokalemia (principal); R53.1 Weakness; R42 Dizziness and giddiness; I10 Essential (primary) hypertension; E11.9 Type 2 diabetes mellitus without complications; E03.9 Hypothyroidism, unspecified; G35 Multiple sclerosis; Z79.899 Other long term (current) drug therapy
CPT/HCPCS: 36415; 70450; 71045; 80053; 81001; 82962; 83735; 84132; 84443; 84484; 85025; 85610; 93005; 96365; 96366; 96376; 99285; A9270; G0378; J1815; J3480; 99284

== ENCOUNTER 2021-02-20 12:27 | Emergency (ER) | payer MEDICARE ==
[2021-02-20] MEDS ORDERED: Sodium Chloride 0.9% 10 ML Syringe FLUSH PRN (12:45)
[2021-02-20] MEDS ORDERED: Sodium Chloride 0.9% 2.5 ML Syringe FLUSH PRN (12:45)
[2021-02-20] MEDS ORDERED: Sodium Chloride 0.9% 10 ML SDV IV PRN (12:45)
[2021-02-20] MEDS ORDERED: Iopamidol 755 MG/ML 500 ML Multipack Bottle IVPUSH ONE (13:05)
[2021-02-20 13:10] LABS: BLOOD UREA NITROGEN,BUN 11 mg/dL (7.0-18.0); CARBON DIOXIDE,CO2 26.7 mmol/L (21.0-32.0); CHLORIDE,CL 105 mmol/L (98-107); GLUCOSE RANDOM 109 mg/dL (74-106); POTASSIUM,K 3.8 mmol/L (3.5-5.1); SODIUM,NA 140 mmol/L (136-145)
--- NOTE | 2021-02-20 13:12 | EDM.PDOC ---
ED HPI GENERAL MEDICAL PROBLEM - General Chief Complaint: Diabetic Complaint Time Seen by Provider: 02/20/21 12:28 Source of Information: Reports: EMS - History of Present Illness INITIAL COMMENTS - FREE TEXT/NARRATIVE: 70-year-old female brought by EMS hypoglycemia. Apparently the patient was at the [employer] checkout line when someone noted her speech to be abnormal. They called 911. When EMS arrived they checked her glucose and it was in the 40s. The patient is a diabetic. She was given oral glucose and the glucose now is improved to the 100s. However her speech has continued to be abnormal. The patient was initially seen by the ER PA, however when noted to have abnormal speech and facial droop despite correction of glucose, stroke alert was activated. Patient denies any symptoms at this time. Onset time is uncertain as the patient lives alone, does not feel any deficits, has no family member and no one saw her other than at the [facility]. Therefore last known normal time is unknown. 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: Musculoskeletal History: Reports: None Neurological History: Reports: MS Psychiatric History: Reports: None Endocrine/Metabolic History: Reports: Diabetes, Type II Hematologic History: Reports: None Immunologic History: Reports: None Oncologic (Cancer) History: Reports: None Dermatologic History: Reports: None - Infectious Disease History Infectious Disease History: Reports: Chicken Pox, Measles - Past Surgical History Head Surgeries/Procedures: Reports: None HEENT Surgical History: Reports: Cataract Surgery Cardiovascular Surgical History: Reports: None GI Surgical History: Reports: Appendectomy Female Surgical History: Reports: Hysterectomy Endocrine Surgical History: Reports: None Neurological Surgical History: Reports: None Social & Family History - Family History Family Medical History: No Pertinent Family History Endocrine/Metabolic: Reports: Diabetes, Type I, Diabetes, type II - Tobacco Use Tobacco Use Status *Q: Never Tobacco User Second Hand Smoke Exposure: No - Caffeine Use Caffeine Use: Reports: None - Recreational Drug Use Recreational Drug Use: No ED ROS GENERAL - Review of Systems Review Of Systems: See Below Constitutional: Reports: No Symptoms Respiratory: Reports: No Symptoms Cardiovascular: Reports: No Symptoms GI/Abdominal: Reports: No Symptoms Neurological: Reports: No Symptoms ED EXAM GENERAL NO PERIP PULSE - Physical Exam Exam: See Below General Appearance: Alert, WD/WN, No Apparent Distress Head: Atraumatic, Normocephalic Neck: Normal Inspection, Supple Respiratory/Chest: No Respiratory Distress Cardiovascular: Regular Rate, Rhythm GI/Abdominal: Soft (Female) Exam: Deferred Rectal (Female) Exam: Deferred Back Exam: Full Range of Motion Extremities: Normal Inspection, Normal Range of Motion, Non-Tender Neurological: Alert, Oriented, Normal Cognition, Other (Mild left facial droop. Mild dysarthria.) Comments: Stroke scale 2 due to patient's left-sided facial droop and dysarthria. Full range of motion of both upper and both lower extremities no drift and no sensory deficit over face, arms and legs bilaterally. She is oriented to month and year and her own age. No visual field defects. #1 Interpretation EKG Date: 02/20/21 Time: 13:17 Rhythm: NSR Rate (Beats/Min): 85 Spring: Normal P-Wave: Present QRS: Normal ST-T: Normal QT: Normal EKG Interpretation Comments: LVH, anterior Q waves, no STEMI Course - Vital Signs Text/Narrative:: Hypoglycemic prior to arrival here. Now improved with ongoing neurologic symptoms. Stroke alert activated due to neurologic deficit of left facial droop and slurred speech. Stroke scale 2. However uncertain time of onset/last normal time as patient lives alone and no family members to confirm. Due to low stroke scale and onset time unknown, the risks of TPA and hemorrhage will outweigh potential benefits for this patient. Repeat glucose was 83. Additional dextrose supplementation will be given. Discussed with neurology at [facility] who agreed with no TPA indicated at this time and agrees with plan for aspirin. The patient will be transferred to [facility]. There is significant delay in care for ground ACLS ambulance and therefore the patient will be transported via air ambulance/helicopter. Patient in no distress throughout emergency department stay. Last Recorded V/S: Last Vital Signs Temp 96.8 F L 02/20/21 12:28 Pulse 83 02/20/21 13:58 Resp 17 02/20/21 13:58 BP 173/86 H 02/20/21 13:58 Pulse Ox 97 02/20/21 13:58 - Orders/Labs/Meds Orders: Active Orders 24 hr Category Date Time Status Accu Check [Blood Glucose Check, Bedside] [RC] ONETIME Care 02/20/21 13:55 Active Assess Neurological Status [RC] ASDIRECTED Care 02/20/21 12:45 Active Bedrest [RC] ASDIRECTED Care 02/20/21 12:45 Active Cardiac Monitoring [RC] . DIRECTED Care 02/20/21 12:45 Active EKG Documentation Completion [RC] STAT Care 02/20/21 12:45 Active Glucose [Blood Glucose Check, Bedside] [RC] ONETIME Care 02/20/21 12:29 Active Height and Weight [RC] UPON Care 02/20/21 12:45 Active Initiate Acute Stroke Protocol [RC] STAT Care 02/20/21 12:45 Active NIH Stroke Scale [RC] ASDIRECTED Care 02/20/21 12:45 Active Nursing Bedside Swallow Screen [RC] ASDIRECTED Care 02/20/21 12:45 Active Vital Signs [RC] Q15M Care 02/20/21 12:45 Active Sodium Chloride 0.9% [Normal Saline] Med 02/20/21 12:45 Active 10 ml IV ASDIRECTED PRN Sodium Chloride 0.9% [Saline Flush] Med 02/20/21 12:45 Active 10 ml FLUSH ASDIRECTED PRN Sodium Chloride 0.9% [Saline Flush] Med 02/20/21 12:45 Active 2.5 ml FLUSH ASDIRECTED PRN Peripheral IV Insertion Adult [OM.PC] Stat Oth 02/20/21 12:45 Ordered Medication Orders Sodium Chloride (Sodium Chloride 0.9% 10 Ml Syringe) 10 ml FLUSH ASDIRECTED PRN PRN Reason: Keep Vein Open Sodium Chloride (Sodium Chloride 0.9% 2.5 Ml Syringe) 2.5 ml FLUSH ASDIRECTED PRN PRN Reason: Keep Vein Open Sodium Chloride (Sodium Chloride 0.9% 10 Ml Sdv) 10 ml IV ASDIRECTED PRN PRN Reason: IV Use Labs: Laboratory Tests 05/28/21 05/28/21 05/28/21 Range/Units 11:30 11:30 11:30 WBC 12.08 H (4.0-11.0) K/uL RBC 4.66 (4.30-5.90) M/uL Hgb 13.5 (12.0-16.0) g/dL Hct 41.9 (36.0-46.0) % MCV 89.9 (80.0-98.0) fL MCH 29.0 (27.0-32.0) pg MCHC 32.2 (31.0-37.0) g/dL RDW Std Deviation 46.3 (28.0-62.0) fl RDW Coeff of Mehreen 14 (11.0-15.0) % Plt Count 273 (150-400) K/uL MPV 9.00 (7.40-12.00) fL Neut % (Auto) 78.3 (48.0-80.0) % Lymph % (Auto) 13.2 L (16.0-40.0) % Turner % (Auto) 5.9 (0.0-15.0) % Eos % (Auto) 2.4 (0.0-7.0) % Baso % (Auto) 0.2 (0.0-1.5) % Neut # (Auto) 9.5 H (1.4-5.7) K/uL Lymph # (Auto) 1.6 (0.6-2.4) K/uL Turner # (Auto) 0.7 (0.0-0.8) K/uL Eos # (Auto) 0.3 (0.0-0.7) K/uL Baso # (Auto) 0.0 (0.0-0.1) K/uL Nucleated RBC % 0.0 /100WBC Nucleated RBCs # 0 K/uL INR 0.96 APTT 23.0 (18.6-31.3) SEC Sodium 140 (136-145) mmol/L Potassium 3.8 (3.5-5.1) mmol/L Chloride 105 (98-107) mmol/L Carbon Dioxide 26.7 (21.0-32.0) mmol/L BUN 11 (7.0-18.0) mg/dL Creatinine 1.4 H (0.6-1.0) mg/dL Est Cr Clr Drug Dosing TNP Estimated GFR (MDRD) 37.0 ml/min Glucose 109 H (74-106) mg/dL POC Glucose (70-99) mg/dL Calcium 9.0 (8.5-10.1) mg/dL Total Bilirubin 0.3 (0.2-1.0) mg/dL AST 16 (15-37) IU/L ALT 25 (14-63) IU/L Alkaline Phosphatase 99 (46-116) U/L Troponin I < 0.050 (0.000-0.056) ng/mL Total Protein 7.0 (6.4-8.2) g/dL Albumin 3.5 (3.4-5.0) g/dL Globulin 3.5 (2.6-4.0) g/dL Albumin/Globulin Ratio 1.0 (0.9-1.6) TSH 3rd Generation 3.46 (0.36-3.74) uIU/mL Urine Color Urine Appearance Urine pH (5.0-8.0) Ur Specific [place] (1.001-1.035) Urine Protein (NEGATIVE) mg/dL Urine Glucose (UA) (NEGATIVE) mg/dL Urine Ketones (NEGATIVE) mg/dL Urine Occult Blood (NEGATIVE) Urine Nitrite (NEGATIVE) Urine Bilirubin (NEGATIVE) Urine Urobilinogen (<2.0) EU/dL Ur Leukocyte Esterase (NEGATIVE) Ethyl Alcohol < 3.0 mg/dL SARS-CoV-2 RNA (TREY) (NEGATIVE) 02/20/21 02/20/21 02/20/21 Range/Units 13:45 13:57 14:06 WBC (4.0-11.0) K/uL RBC (4.30-5.90) M/uL Hgb (12.0-16.0) g/dL Hct (36.0-46.0) % MCV (80.0-98.0) fL MCH (27.0-32.0) pg MCHC (31.0-37.0) g/dL RDW Std Deviation (28.0-62.0) fl RDW Coeff of Mehreen (11.0-15.0) % Plt Count (150-400) K/uL MPV (7.40-12.00) fL Neut % (Auto) (48.0-80.0) % Lymph % (Auto) (16.0-40.0) % Turner % (Auto) (0.0-15.0) % Eos % (Auto) (0.0-7.0) % Baso % (Auto) (0.0-1.5) % Neut # (Auto) (1.4-5.7) K/uL Lymph # (Auto) (0.6-2.4) K/uL Turner # (Auto) (0.0-0.8) K/uL Eos # (Auto) (0.0-0.7) K/uL Baso # (Auto) (0.0-0.1) K/uL Nucleated RBC % /100WBC Nucleated RBCs # K/uL INR APTT (18.6-31.3) SEC Sodium (136-145) mmol/L Potassium (3.5-5.1) mmol/L Chloride (98-107) mmol/L Carbon Dioxide (21.0-32.0) mmol/L BUN (7.0-18.0) mg/dL Creatinine (0.6-1.0) mg/dL Est Cr Clr Drug Dosing Estimated GFR (MDRD) ml/min Glucose (74-106) mg/dL POC Glucose 87 (70-99) mg/dL Calcium (8.5-10.1) mg/dL Total Bilirubin (0.2-1.0) mg/dL AST (15-37) IU/L ALT (14-63) IU/L Alkaline Phosphatase (46-116) U/L Troponin I (0.000-0.056) ng/mL Total Protein (6.4-8.2) g/dL Albumin (3.4-5.0) g/dL Globulin (2.6-4.0) g/dL Albumin/Globulin Ratio (0.9-1.6) TSH 3rd Generation (0.36-3.74) uIU/mL Urine Color YELLOW Urine Appearance CLEAR Urine pH 6.5 (5.0-8.0) Ur Specific [place] 1.010 (1.001-1.035) Urine Protein NEGATIVE (NEGATIVE) mg/dL Urine Glucose (UA) NEGATIVE (NEGATIVE) mg/dL Urine Ketones NEGATIVE (NEGATIVE) mg/dL Urine Occult Blood NEGATIVE (NEGATIVE) Urine Nitrite NEGATIVE (NEGATIVE) Urine Bilirubin NEGATIVE (NEGATIVE) Urine Urobilinogen 0.2 (<2.0) EU/dL Ur Leukocyte Esterase NEGATIVE (NEGATIVE) Ethyl Alcohol mg/dL SARS-CoV-2 RNA (TREY) NEGATIVE (NEGATIVE) Meds: Medications Generic Name Dose Route Start Last Admin Trade Name Freq PRN Reason Stop Dose Admin Sodium Chloride 10 ml 02/20/21 12:45 Sodium Chloride 0.9% 10 Ml Syringe FLUSH ASDIRECTED PRN Keep Vein Open Sodium Chloride 2.5 ml 02/20/21 12:45 Sodium Chloride 0.9% 2.5 Ml Syringe FLUSH ASDIRECTED PRN Keep Vein Open Sodium Chloride 10 ml 02/20/21 12:45 Sodium Chloride 0.9% 10 Ml Sdv IV ASDIRECTED PRN IV Use Discontinued Medications Generic Name Dose Route Start Last Admin Trade Name Freq PRN Reason Stop Dose Admin Aspirin 325 mg 02/20/21 14:06 02/20/21 14:30 Aspirin 325 Mg Tab PO 02/20/21 14:07 325 mg ONETIME ONE Administration Dextrose/Water 10 ml 02/20/21 14:06 02/20/21 14:30 25% Dextrose In Water 10 Ml Syringe IVPUSH 02/20/21 14:07 10 ml ONETIME ONE Administration Iopamidol 100 ml 02/20/21 13:05 02/20/21 13:06 Iopamidol 755 Mg/Ml 500 Ml Multipack Bottle IVPUSH 02/20/21 13:06 100 ml ONETIME ONE Administration - Re-Assessments/Exams Free Text/Narrative Re-Assessment/Exam: 02/20/21 13:53 Call out to neurology at [facility] in regards to transfer and TPA. Dr Mayorga consulting. 02/20/21 14:[address] Mayorga from neurology, who recommends no TPA -- not indicated based on unknown onset time and low stroke scale. He does recommend aspirin and transfer to the ER. Discussed with Dr. Bowling, the ER physician at [facility] who accepts the case. 02/20/21 15:14 The patient is pending transfer. However there are no available ambulances to transport the patient until 10 PM tonight. As there is concern for stroke and delay in transfer could impact the patient's clinical course and care, the patient will now be transferred via helicopter. [facility] was updated on the change in status. 02/20/21 15:37 Reassessed the patient and updated her on change in status and need for transfer via helicopter. She agrees with this plan. She does seem to have improved clinically. Her speech is much less dysarthric and appears clear and nearly normal. The left facial droop also appears to have improved at this point. Helicopter team has arrived at this point and preparing to transfer. Will check additional fingerstick glucose now prior to transfer. 02/20/21 15:40 Repeat glucose was 82, 1/2 amp of D50 was given. Departure - Departure Time of Disposition: 14:12 Disposition: DC/Tfer to [facility] 02 Clinical Impression: Stroke, Hypoglycemia - Discharge Information Forms: ED Department Discharge Critical Care Note - Critical Care Note Total Time (mins): 35 Comments: Stroke alert activation, rapid CT scan, decisions regarding TPA made, discussion with neurology. Transfer to higher level of care facility Sepsis Event Note (ED) - Evaluation Sepsis Screening Result: No Definite Risk - Focused Exam Vital Signs: Vital Signs Temp Pulse Resp BP Pulse Ox 02/20/21 13:58 83 17 173/86 H 97 02/20/21 13:43 81 17 174/88 H 97 02/20/21 13:28 87 17 176/89 H 99 02/20/21 13:13 82 17 170/85 H 97 02/20/21 12:58 97 17 187/93 H 97 02/20/21 12:43 84 17 197/69 H 97 02/20/21 12:28 96.8 F L 91 18 185/76 H 97 - My Orders Last 24 Hours: My Active Orders 02/20/21 13:55 Accu Check [Blood Glucose Check, Bedside] [RC] ONETIME - Assessment/Plan Last 24 Hours: My Active Orders 02/20/21 13:55 Accu Check [Blood Glucose Check, Bedside] [RC] ONETIME
--- NOTE | 2021-02-20 13:37 | CR ---
INDICATION: stroke code TECHNIQUE: Chest 1 view. COMPARISON: None. FINDINGS: Cardiovascular and mediastinum: Heart size and vasculature are normal in caliber and appearance. Mediastinum is within normal limits. Lungs and pleural space: Lungs are clear. No sign of infiltrate or mass. No sign of pleural effusion. No pneumothorax. Bones and soft tissues: No significant findings. IMPRESSION: Unremarkable chest. Dictated by: iSva Penny MD @ 02/20/2021 13:35:05 (Electronically Signed)
--- NOTE | 2021-02-20 13:39 | CT ---
INDICATION: Acute stroke. TECHNIQUE: After standard noncontrast head CT, high resolution axial CT images acquired through the head and neck following rapid intravenous administration of iodinated contrast. Multiplanar MIPS of cranial and cervical vasculature performed. COMPARISON: Noncontrast head CT 02/23/2019. FINDINGS: The noncontrast CT images show no intracranial hemorrhage or fluid collection. There is generalized brain parenchymal volume loss. There are extensive nonspecific white hypodensities commonly seen in chronic small vessel ischemic disease. Focal hypodensity noted in the right frontal white matter/ribera radiata/centrum semiovale, consistent a previous infarct in the anterior right MCA territory. There is also evidence of old lacunar infarcts in the left subinsular region and basal ganglia. The olivera-white matter differentiation elsewhere is grossly maintained. The ventricles and basal cisterns are clear. Angiographically, heavily calcified plaque is present around both carotid siphons. There is no significant intracranial stenosis or large vessel occlusion. No aneurysm or vascular malformation is identified. In the neck, there is atherosclerotic plaque in the proximal ICAs bilaterally. On the right, there is a severe stenosis of the origin of the ICA measuring 70-75 percent by NASCET criteria. There is no significant stenosis on the left. There is no significant vertebral artery stenosis or dissection. IMPRESSION: 1. No large vessel occlusion; no acute intracranial abnormality at CT/CTA. 2. Multiple old cerebral infarctions as described above with a moderate-sized old infarct in the anterior right MCA territory. 3. Severe right ICA origin stenosis, 70-75 percent by NASCET criteria. Ceasar Bailey MD [facility] Please note that all CT scans at this facility use dose modulation, iterative reconstruction, and/or weight-based dosing when appropriate to reduce radiation dose to as low as reasonably achievable. Dictated by Ceasar Bailey MD @ 02/20/2021 1:37:[address] Ceasar Bailey @ Feb 20 2021 1:37PM
[2021-02-20] MEDS ORDERED: 25% Dextrose in Water 10 ML Syringe IVPUSH ONE (14:06)
[2021-02-20] MEDS ORDERED: Aspirin 325 MG Tab PO ONE (14:06)
[2021-02-20] MEDS ORDERED: 50% Dextrose in Water 50 ML Syringe ONE ×2 (14:12→15:41)
[2021-02-20] MEDS ORDERED: 50% Dextrose in Water 50 ML Syringe IVPUSH ONE ×3 (14:15→15:42)
[2021-02-20 15:23] VITALS: BP 168/78; PULSE 80
== END 2021-02-20 15:47 ==
LOC: MW.ED 12:27
DX: I63.9 Cerebral infarction, unspecified (principal); E11.65 Type 2 diabetes mellitus with hyperglycemia; E78.00 Pure hypercholesterolemia, unspecified; I10 Essential (primary) hypertension; Z20.822 Contact with and (suspected) exposure to COVID-19; Z79.899 Other long term (current) drug therapy
CPT/HCPCS: 36415; 70450; 70496; 70498; 71045; 80053; 80307; 81003; 82947; 84443; 84484; 85025; 85610; 85730; 93005; 96374; 99285; A9270; Q9967; U0002

== ENCOUNTER 2023-05-06 17:57 | Observation (INO) | payer MEDICARE, OTHER ==
[2023-05-06] MEDS ORDERED: Sodium Chloride 0.9% 10 ML Syringe FLUSH PRN (18:04)
[2023-05-06] MEDS ORDERED: Sodium Chloride 0.9% 2.5 ML Syringe FLUSH PRN (18:04)
[2023-05-06] MEDS ORDERED: Sodium Chloride 23.4% 154 MEQ in Dextrose 10% in Water 1,000 ML IV STA ×2 (18:10)
[2023-05-06 18:11] LABS: BASOPHILS PERCENT AUTO 0.2 % (0.0-1.5); EOSINOPHILS ABSOLUTE AUTO 0.1 K/uL (0.0-0.7); EOSINOPHILS PERCENT AUTO 0.5 % (0.0-7.0); HEMATOCRIT 42.2 % (36.0-46.0); HEMOGLOBIN 13.6 g/dL (12.0-16.0); LYMPHOCYTES ABSOLUTE AUTO 0.9 K/uL (0.6-2.4); LYMPHOCYTES PERCENT AUTO 7.5 % (16.0-40.0); MEAN CORPUSCULAR HEMOGLOBIN 28.8 pg (27.0-32.0); MEAN CORPUSCULAR HGB CONC 32.2 g/dL (31.0-37.0); MEAN CORPUSCULAR VOLUME 89.4 fL (80.0-98.0); MONOCYTES ABSOLUTE AUTO 0.5 K/uL (0.0-0.8); MONOCYTES PERCENT AUTO 4.3 % (0.0-15.0); NEUTROPHILS ABSOLUTE AUTO 10.8 K/uL (1.4-5.7); NEUTROPHILS PERCENT AUTO 87.5 % (48.0-80.0); NRBC ABSOLUTE 0 K/uL; PLATELET COUNT,PLT 298 K/uL (150-400); RED BLOOD CELL COUNT 4.72 M/uL (4.30-5.90); WHITE BLOOD CELL COUNT,WBC 12.39 K/uL (4.0-11.0)
[2023-05-06 18:27] LABS: A/G RATIO 1.1 (0.9-1.6); ALBUMIN 3.8 g/dL (3.4-5.0); BILIRUBIN TOTAL 0.4 mg/dL (0.2-1.0); CALCIUM 9.2 mg/dL (8.5-10.1); CARBON DIOXIDE,CO2 25.9 mmol/L (21.0-32.0); CREATININE 1.3 mg/dL (0.6-1.0); EST CRCL DRUG DOSING (CG) 33.65 mL/min; POTASSIUM,K 4.3 mmol/L (3.5-5.1); PROTEIN TOTAL,TP 7.4 g/dL (6.4-8.2)
[2023-05-06 18:29] LABS: MAGNESIUM 2.2 mg/dL (1.8-2.4)
[2023-05-06] MEDS ORDERED: Dextrose 10% in Water 500 ML IV SCH (18:30)
[2023-05-06 20:38] LABS: APPEARANCE,URINE CLEAR; BILIRUBIN,URINE NEGATIVE (NEGATIVE); COLOR,URINE YELLOW; GLUCOSE,URINE NEGATIVE (NEGATIVE); KETONES,URINE NEGATIVE (NEGATIVE); LEUKOCYTE ESTERASE,URINE NEGATIVE (NEGATIVE); NITRITE,URINE NEGATIVE (NEGATIVE); OCCULT BLOOD,URINE NEGATIVE (NEGATIVE); PROTEIN,URINE NEGATIVE (NEGATIVE); UROBILINOGEN,URINE 0.2 EU/dL (<2.0)
[2023-05-07 10:12] VITALS: BP 153/66; PULSE 82
== END 2023-05-07 10:50 | disposition home or self-care (01) ==
LOC: MW.ED 17:57 → EDBD 17:57 → MERGE 21:28 → MW.MS 21:28
PROVIDERS: ADMIT Internal Medicine; ATTEND Internal Medicine
DX: E11.649 Type 2 diabetes mellitus with hypoglycemia without coma (principal); E78.00 Pure hypercholesterolemia, unspecified; I10 Essential (primary) hypertension; G35 Multiple sclerosis; Z79.4 Long term (current) use of insulin; Z79.899 Other long term (current) drug therapy; Z20.822 Contact with and (suspected) exposure to COVID-19
CPT/HCPCS: 36415; 80053; 80307; 81003; 82947; 83735; 84484; 85025; 93005; 96360; 96361; 99285; G0378; J3490; U0002; 93010

== ENCOUNTER 2023-05-06 18:21 | Emergency (ER) | payer MEDICARE, OTHER | END 2023-05-07 05:16 | LOC: MW.ED 18:21 | DX: Z53.21 Procedure and treatment not carried out due to patient leaving prior to being seen by health care provider (principal) ==

== ENCOUNTER 2024-03-04 13:41 | Emergency (ER) | payer MEDICARE, OTHER ==
[2024-03-04] MEDS: Dextrose 10% in Water 500 ML IV STA (14:07)
[2024-03-04 14:29] LABS: BASOPHILS ABSOLUTE AUTO 0.06 K/uL (0.00-0.20); BASOPHILS PERCENT AUTO 0.5 % (0.0-1.0); EOSINOPHILS ABSOLUTE AUTO 0.05 K/uL (0.00-0.45); EOSINOPHILS PERCENT AUTO 0.4 % (0.0-6.0); HEMATOCRIT 40.3 % (37.0-47.0); HEMOGLOBIN 13.3 g/dL (12.0-16.0); IMMATURE GRAN ABSOLUTE AUTO 0.04 K/uL (0.00-0.05); IMMATURE GRAN PERCENT AUTO 0.3 % (0.0-0.4); LYMPHOCYTES ABSOLUTE AUTO 1.32 K/uL (1.00-4.80); LYMPHOCYTES PERCENT AUTO 10.5 % (24.0-44.0); MEAN CORPUSCULAR HEMOGLOBIN 29.3 pg (28.0-32.0); MEAN CORPUSCULAR VOLUME 88.8 fL (83.0-99.0); MEAN PLATELET VOLUME 8.4 fL (9.4-12.3); MONOCYTES ABSOLUTE AUTO 0.62 K/uL (0.00-0.80); MONOCYTES PERCENT AUTO 4.9 % (0.0-8.0); NEUTROPHILS ABSOLUTE AUTO 10.45 K/uL (1.80-7.70); NEUTROPHILS PERCENT AUTO 83.4 % (41.0-71.0); PLATELET COUNT,PLT 239 K/uL (150-400); RED BLOOD CELL COUNT 4.54 M/uL (4.10-5.30); WHITE BLOOD CELL COUNT,WBC 12.54 K/uL (3.9-11.3)
[2024-03-04 14:43] LABS: INR 0.96 (0.86-1.11); PTT,PARTIAL THROMBOPLSTIN TIME 23.7 SEC (23.9-30.7)
[2024-03-04 14:53] LABS: ALKALINE PHOSPHATASE 140 U/L (46-116); ASPARTATE AMNIOTRANSFERASE,AST 32 IU/L (15-37); BILIRUBIN TOTAL 0.4 mg/dL (0.2-1.0); CARBON DIOXIDE,CO2 27.2 mmol/L (21.0-32.0); CHLORIDE,CL 106 mmol/L (98-107); POTASSIUM,K 3.7 mmol/L (3.5-5.1); PROTEIN TOTAL,TP 7.4 g/dL (6.4-8.2); SODIUM,NA 142 mmol/L (136-145)
[2024-03-04 15:15] LABS: A/G RATIO 0.9 (0.9-1.6); ALANINE AMINOTRANSFERASE,ALT 46 IU/L (14-63); ALBUMIN 3.5 g/dL (3.4-5.0); BLOOD UREA NITROGEN,BUN 19 mg/dL (7.0-18.0); CALCIUM 8.9 mg/dL (8.5-10.1); CREATININE 1.2 mg/dL (0.6-1.0); ESTIMATED GFR 47 mL/min (>60); GLUCOSE RANDOM 115 mg/dL (74-106); LIPASE 50 U/L (16-77)
[2024-03-04 15:33] LABS: CREATINE KINASE,CK 223 U/L (26-308); ETHANOL BLOOD MEDICAL < 3.0 mg/dL; MAGNESIUM 2.1 mg/dL (1.8-2.4)
[2024-03-04 15:46] LABS: APPEARANCE,URINE CLEAR; BILIRUBIN,URINE NEGATIVE (NEGATIVE); COLOR,URINE YELLOW; GLUCOSE,URINE NEGATIVE (NEGATIVE); KETONES,URINE NEGATIVE (NEGATIVE); LEUKOCYTE ESTERASE,URINE NEGATIVE (NEGATIVE); NITRITE,URINE NEGATIVE (NEGATIVE); OCCULT BLOOD,URINE TRACE-INTACT (NEGATIVE); PROTEIN,URINE TRACE mg/dL (NEGATIVE); UROBILINOGEN,URINE 0.2 EU/dL (<2.0)
[2024-03-04 15:54] LABS: BACTERIA,URINE FEW (NEGATIVE); EPITHELIAL CELLS,URINE OCCASIONAL (NONE-FEW); RBC,URINE 0-1 (0-2/HPF); WBC,URINE 0-1 (0-5/HPF)
[2024-03-04 15:55] LABS: MUCUS,URINE OCCASIONAL (NONE-MOD)
[2024-03-04 17:30] VITALS: BP 155/94; PULSE 81
== END 2024-03-04 17:30 | disposition home or self-care (01) ==
LOC: MW.ED 13:41
DX: E11.649 Type 2 diabetes mellitus with hypoglycemia without coma (principal); I10 Essential (primary) hypertension; E78.00 Pure hypercholesterolemia, unspecified; Z79.4 Long term (current) use of insulin; Z79.899 Other long term (current) drug therapy; Z75.8 Other problems related to medical facilities and other health care
CPT/HCPCS: 36415; 70450; 70450-26; 71045; 71045-26; 72125; 72125-26; 80053; 80307; 81001; 82550; 82947; 83690; 83735; 84484; 85025; 85610; 85730; 93005; 93010; 96360; 96361; 99283; 99285-25; J3490

== ENCOUNTER 2024-07-30 11:36 | Inpatient (IN) | payer MEDICARE ==
[2024-07-30] MEDS: Sodium Chloride 0.9% 1,000 ML IV ONE ×2 (13:02→17:05)
[2024-07-30 13:03] LABS: BASOPHILS ABSOLUTE AUTO 0.02 K/uL (0.00-0.20); BASOPHILS PERCENT AUTO 0.4 % (0.0-1.0); HEMATOCRIT 40.1 % (37.0-47.0); HEMOGLOBIN 13.2 g/dL (12.0-16.0); IMMATURE GRAN ABSOLUTE AUTO 0.02 K/uL (0.00-0.05); IMMATURE GRAN PERCENT AUTO 0.4 % (0.0-0.4); LYMPHOCYTES ABSOLUTE AUTO 1.17 K/uL (1.00-4.80); LYMPHOCYTES PERCENT AUTO 23.3 % (24.0-44.0); MEAN CORPUSCULAR HEMOGLOBIN 28.4 pg (28.0-32.0); MEAN CORPUSCULAR HGB CONC 32.9 g/dL (32.0-36.0); MEAN CORPUSCULAR VOLUME 86.4 fL (83.0-99.0); MEAN PLATELET VOLUME 9.1 fL (9.4-12.3); MONOCYTES ABSOLUTE AUTO 0.55 K/uL (0.00-0.80); NEUTROPHILS ABSOLUTE AUTO 3.26 K/uL (1.80-7.70); NEUTROPHILS PERCENT AUTO 64.9 % (41.0-71.0); PLATELET COUNT,PLT 167 K/uL (150-400); RED BLOOD CELL COUNT 4.64 M/uL (4.10-5.30); WHITE BLOOD CELL COUNT,WBC 5.02 K/uL (3.9-11.3)
[2024-07-30 13:34] LABS: A/G RATIO 0.9 (0.9-1.6); ALANINE AMINOTRANSFERASE,ALT 36 IU/L (14-63); ALKALINE PHOSPHATASE 102 U/L (46-116); ASPARTATE AMNIOTRANSFERASE,AST 36 IU/L (15-37); BILIRUBIN TOTAL 0.5 mg/dL (0.2-1.0); BLOOD UREA NITROGEN,BUN 26 mg/dL (7.0-18.0); CALCIUM 8.4 mg/dL (8.5-10.1); CHLORIDE,CL 104 mmol/L (98-107); CREATININE 1.5 mg/dL (0.6-1.0); EST CRCL DRUG DOSING (CG) 32.19 mL/min; ETHANOL BLOOD MEDICAL <3 mg/dL; GLUCOSE RANDOM 162 mg/dL (74-106); LIPASE 66 U/L (16-77); MAGNESIUM 1.9 mg/dL (1.8-2.4); POTASSIUM,K 4.1 mmol/L (3.5-5.1); PROTEIN TOTAL,TP 6.4 g/dL (6.4-8.2); SODIUM,NA 137 mmol/L (136-145)
[2024-07-30 13:37] LABS: LACTIC ACID 0.9 mmol/L (0.4-2.0)
[2024-07-30 13:38] LABS: ESTIMATED GFR 36 mL/min (>60)
[2024-07-30] MEDS: Iopamidol 755 MG/ML 500 ML Multipack Bottle IVPUSH STA (15:05)
[2024-07-30 17:48] LABS: APPEARANCE,URINE CLEAR; BILIRUBIN,URINE NEGATIVE (NEGATIVE); COLOR,URINE YELLOW; GLUCOSE,URINE NEGATIVE (NEGATIVE); KETONES,URINE TRACE mg/dL (NEGATIVE); LEUKOCYTE ESTERASE,URINE NEGATIVE (NEGATIVE); NITRITE,URINE NEGATIVE (NEGATIVE); OCCULT BLOOD,URINE NEGATIVE (NEGATIVE); PH,URINE 5.5 (5.0-8.0); PROTEIN,URINE TRACE mg/dL (NEGATIVE); UROBILINOGEN,URINE 0.2 EU/dL (<2.0)
[2024-07-30 17:55] LABS: AMPHETAMINES SCREEN, URINE NEGATIVE (CUTOFF=500); BARBITURATE SCREEN,URINE NEGATIVE (CUTOFF=200); BENZODIAZEPINES SCREEN,URINE NEGATIVE (CUTOFF=150); BUPRENORPHINE SCREEN,URINE NEGATIVE (CUTOFF=10); METHADONE SCREEN, URINE NEGATIVE (CUTOFF=200); METHAMPHETAMINES SCREEN, URINE NEGATIVE (CUTOFF=500); OXYCODONE SCREEN,URINE NEGATIVE (CUT0FF=100); PCP SCREEN,URINE NEGATIVE (CUTOFF=25); THC SCREEN,URINE 20 NG/ML NEGATIVE (CUTOFF=50)
[2024-07-30 17:58] LABS: BACTERIA,URINE NOT SEEN (NEGATIVE); EPITHELIAL CELLS,URINE NOT SEEN (NONE-FEW); RBC,URINE 0-1 (0-2/HPF); WBC,URINE 0-1 (0-5/HPF)
[2024-07-30] MEDS ORDERED: Acetaminophen 325 MG Tab PO PRN (18:54)
[2024-07-30] MEDS ORDERED: Ondansetron 4 MG Tab.DIS PO PRN (18:54)
[2024-07-30] MEDS ORDERED: Albuterol/Ipratropium 3.0-0.5 MG/3 ML Neb Soln NEB PRN (18:54)
[2024-07-30] MEDS ORDERED: Polyethylene Glycol 3350 Powder 17 GM Packet PO PRN (18:54)
[2024-07-30] MEDS ORDERED: Docusate Sodium 100 MG Cap PO PRN (18:54)
[2024-07-30] MEDS ORDERED: Melatonin 3 MG Tab PO PRN (18:54)
[2024-07-30] MEDS ORDERED: 50% Dextrose in Water 50 ML Syringe IVPUSH PRN (19:04)
[2024-07-30] MEDS ORDERED: Glucagon,Human Recombinant 1 MG Vial IM PRN (19:04)
[2024-07-30] MEDS: Enoxaparin 40 MG/0.4 ML Syringe SUBCUT SCH (20:23)
[2024-07-30] MEDS: cefTRIAXone 1 GM in Sodium Chloride 0.9% 50 ML IV SCH (20:23)
[2024-07-30] MEDS: Insulin Glargine,Hum.Rec.Anlog 100 UNIT/ML 3 ML Pen SUBCUT SCH (20:24)
[2024-07-30] MEDS: Nirmatrelvir/Ritonavir 150 MG/100 MG Dose Pack (Renal Dose) PO SCH ×2 (23:15→23:25)
[2024-07-31 06:11] LABS: BASOPHILS ABSOLUTE AUTO 0.02 K/uL (0.00-0.20); BASOPHILS PERCENT AUTO 0.5 % (0.0-1.0); HEMATOCRIT 35.2 % (37.0-47.0); HEMOGLOBIN 11.6 g/dL (12.0-16.0); IMMATURE GRAN ABSOLUTE AUTO 0.02 K/uL (0.00-0.05); IMMATURE GRAN PERCENT AUTO 0.5 % (0.0-0.4); LYMPHOCYTES ABSOLUTE AUTO 1.38 K/uL (1.00-4.80); LYMPHOCYTES PERCENT AUTO 32.1 % (24.0-44.0); MEAN CORPUSCULAR HEMOGLOBIN 28.3 pg (28.0-32.0); MEAN CORPUSCULAR VOLUME 85.9 fL (83.0-99.0); MEAN PLATELET VOLUME 9.3 fL (9.4-12.3); MONOCYTES ABSOLUTE AUTO 0.45 K/uL (0.00-0.80); MONOCYTES PERCENT AUTO 10.5 % (0.0-8.0); NEUTROPHILS ABSOLUTE AUTO 2.43 K/uL (1.80-7.70); NEUTROPHILS PERCENT AUTO 56.4 % (41.0-71.0); PLATELET COUNT,PLT 172 K/uL (150-400)
[2024-07-31 06:38] LABS: A/G RATIO 0.8 (0.9-1.6); ALBUMIN 2.6 g/dL (3.4-5.0); BILIRUBIN TOTAL 0.4 mg/dL (0.2-1.0); CARBON DIOXIDE,CO2 22.8 mmol/L (21.0-32.0); CREATININE 1.2 mg/dL (0.6-1.0); EST CRCL DRUG DOSING (CG) 40.23 mL/min; POTASSIUM,K 3.8 mmol/L (3.5-5.1); PROTEIN TOTAL,TP 5.7 g/dL (6.4-8.2)
[2024-07-31] MEDS: Insulin Aspart 100 Units/ML 3 ML Pen SUBCUT SCH (07:47)
[2024-07-31] MEDS ORDERED: Nirmatrelvir/Ritonavir 150 MG/100 MG Dose Pack (Renal Dose) PO SCH (09:00)
[2024-07-31] MEDS: amLODIPine 5 MG Tab PO SCH (09:50)
[2024-07-31] MEDS: atorvaSTATin 40 MG Tab PO SCH (09:51)
[2024-07-31] MEDS: Hydrochlorothiazide 25 MG Tab PO SCH (09:51)
[2024-07-31 11:19] LABS: HEMOGLOBIN A1C 9.5 %
[2024-07-31] MEDS: cefTRIAXone 1 GM in Sodium Chloride 0.9% 50 ML IV SCH (18:04)
[2024-08-01] MEDS: Nystatin Topical Powder 15 GM Bottle TOP SCH (05:34)
[2024-08-01 05:46] LABS: BASOPHILS ABSOLUTE AUTO 0.02 K/uL (0.00-0.20); BASOPHILS PERCENT AUTO 0.4 % (0.0-1.0); EOSINOPHILS ABSOLUTE AUTO 0.02 K/uL (0.00-0.45); EOSINOPHILS PERCENT AUTO 0.4 % (0.0-6.0); HEMATOCRIT 35.5 % (37.0-47.0); HEMOGLOBIN 11.6 g/dL (12.0-16.0); IMMATURE GRAN ABSOLUTE AUTO 0.02 K/uL (0.00-0.05); IMMATURE GRAN PERCENT AUTO 0.4 % (0.0-0.4); LYMPHOCYTES ABSOLUTE AUTO 1.92 K/uL (1.00-4.80); LYMPHOCYTES PERCENT AUTO 39.6 % (24.0-44.0); MEAN CORPUSCULAR HEMOGLOBIN 28.5 pg (28.0-32.0); MEAN CORPUSCULAR HGB CONC 32.7 g/dL (32.0-36.0); MEAN CORPUSCULAR VOLUME 87.2 fL (83.0-99.0); MEAN PLATELET VOLUME 9.2 fL (9.4-12.3); MONOCYTES ABSOLUTE AUTO 0.52 K/uL (0.00-0.80); MONOCYTES PERCENT AUTO 10.7 % (0.0-8.0); NEUTROPHILS ABSOLUTE AUTO 2.35 K/uL (1.80-7.70); NEUTROPHILS PERCENT AUTO 48.5 % (41.0-71.0); PLATELET COUNT,PLT 177 K/uL (150-400); RED BLOOD CELL COUNT 4.07 M/uL (4.10-5.30); WHITE BLOOD CELL COUNT,WBC 4.85 K/uL (3.9-11.3)
[2024-08-01 06:20] LABS: A/G RATIO 0.8 (0.9-1.6); ALBUMIN 2.7 g/dL (3.4-5.0); BILIRUBIN TOTAL 0.3 mg/dL (0.2-1.0); CALCIUM 8.3 mg/dL (8.5-10.1); CARBON DIOXIDE,CO2 28.2 mmol/L (21.0-32.0); CREATININE 1.4 mg/dL (0.6-1.0); EST CRCL DRUG DOSING (CG) 34.49 mL/min; POTASSIUM,K 4.3 mmol/L (3.5-5.1); PROTEIN TOTAL,TP 5.9 g/dL (6.4-8.2)
[2024-08-01] MEDS ORDERED: Sodium Chloride 0.9% 1,000 ML IV SCH (10:00)
[2024-08-01 14:46] VITALS: BP 136/59; PULSE 77
== END 2024-08-01 14:45 | disposition home or self-care (01) | DRG 179 ==
LOC: MW.ED 11:36 → MW.MS 18:21
PROVIDERS: ADMIT Family Medicine; ATTEND Family Medicine
PROC: XW033F5 Introduction of Other New Technology Therapeutic Substance into Peripheral Vein, Percutaneous Approach, New Technology Group 5 (ICD-10-PCS; principal; 2024-07-30)
DX: U07.1 COVID-19 (principal); J12.9 Viral pneumonia, unspecified; R41.0 Disorientation, unspecified; E11.9 Type 2 diabetes mellitus without complications; I10 Essential (primary) hypertension; K59.00 Constipation, unspecified; G47.00 Insomnia, unspecified; Z75.8 Other problems related to medical facilities and other health care; Z79.899 Other long term (current) drug therapy; Z79.4 Long term (current) use of insulin
CPT/HCPCS: 36415; 70450; 70496; 70498; 71045; 74177; 80053; 80305; 80307; 81001; 83605; 83690; 83735; 84484; 85025; 87428; 93005; J7030 ×2; Q9967; 82140; 82607; 82947; 83036; 84443; 93010; 96360; 96361; 97161-GP; 99222; 99232; 99239; 99285; 99285-25; A9270-GY; J0696; J1650; J3490

== ENCOUNTER 2024-12-13 12:24 | Inpatient (IN) | payer MEDICARE, OTHER ==
[2024-12-13] MEDS: Sodium Chloride 0.9% 1,000 ML IV STA ×2 (12:38→13:29)
[2024-12-13] MEDS: Ondansetron 4 MG/2 ML SDV IVPUSH STA (12:38)
[2024-12-13 12:42] LABS: BASOPHILS ABSOLUTE AUTO 0.09 K/uL (0.00-0.20); BASOPHILS PERCENT AUTO 0.5 % (0.0-1.0); EOSINOPHILS ABSOLUTE AUTO 0.35 K/uL (0.00-0.45); EOSINOPHILS PERCENT AUTO 1.8 % (0.0-6.0); HEMOGLOBIN 13.8 g/dL (12.0-16.0); IMMATURE GRAN ABSOLUTE AUTO 0.09 K/uL (0.00-0.05); IMMATURE GRAN PERCENT AUTO 0.5 % (0.0-0.4); LYMPHOCYTES PERCENT AUTO 4.5 % (24.0-44.0); MEAN CORPUSCULAR HEMOGLOBIN 28.5 pg (28.0-32.0); MEAN CORPUSCULAR HGB CONC 32.1 g/dL (32.0-36.0); MEAN CORPUSCULAR VOLUME 88.7 fL (83.0-99.0); MEAN PLATELET VOLUME 8.9 fL (9.4-12.3); MONOCYTES ABSOLUTE AUTO 0.66 K/uL (0.00-0.80); MONOCYTES PERCENT AUTO 3.3 % (0.0-8.0); NEUTROPHILS ABSOLUTE AUTO 17.82 K/uL (1.80-7.70); NEUTROPHILS PERCENT AUTO 89.4 % (41.0-71.0); PLATELET COUNT,PLT 225 K/uL (150-400); RED BLOOD CELL COUNT 4.85 M/uL (4.10-5.30); WHITE BLOOD CELL COUNT,WBC 19.91 K/uL (3.9-11.3)
[2024-12-13 12:49] LABS: BASE EXCESS VENOUS 4.2 (-2.0-3.0)
[2024-12-13 12:50] LABS: PH,VENOUS 7.39 (7.32-7.43)
[2024-12-13 13:18] LABS: A/G RATIO 0.9 (0.9-1.6); ALBUMIN 3.4 g/dL (3.4-5.0); BILIRUBIN TOTAL 0.6 mg/dL (0.2-1.0); CALCIUM 9.2 mg/dL (8.5-10.1); CARBON DIOXIDE,CO2 28.4 mmol/L (21.0-32.0); CREATININE 1.3 mg/dL (0.6-1.0); EST CRCL DRUG DOSING (CG) 31.79 mL/min; MAGNESIUM 1.6 mg/dL (1.8-2.4); PHOSPHORUS 3.4 mg/dL (2.6-4.7); POTASSIUM,K 4.4 mmol/L (3.5-5.1); PROTEIN TOTAL,TP 7.1 g/dL (6.4-8.2)
[2024-12-13] MEDS: Piperacillin/Tazobactam 4.5 GM in Sodium Chloride 0.9% 100 ML IV STA (13:25)
[2024-12-13] MEDS: Iopamidol 755 MG/ML 500 ML Multipack Bottle IVPUSH ONE (13:46)
[2024-12-13] MEDS: Magnesium Sulf/Wat 2 GM/50 mL 2 GM in Premix Bag 1 BAG IV STA (14:33)
[2024-12-13 14:35] LABS: APPEARANCE,URINE CLEAR; BILIRUBIN,URINE NEGATIVE (NEGATIVE); COLOR,URINE YELLOW; GLUCOSE,URINE NEGATIVE (NEGATIVE); KETONES,URINE NEGATIVE (NEGATIVE); LEUKOCYTE ESTERASE,URINE NEGATIVE (NEGATIVE); NITRITE,URINE NEGATIVE (NEGATIVE); OCCULT BLOOD,URINE NEGATIVE (NEGATIVE); PROTEIN,URINE NEGATIVE (NEGATIVE); UROBILINOGEN,URINE 0.2 EU/dL (<2.0)
[2024-12-13] MEDS: Sodium Chloride 0.9% 500 ML IV STA (14:37)
[2024-12-13] MEDS ORDERED: Ondansetron 4 MG/2 ML SDV IVPUSH PRN (15:14)
[2024-12-13] MEDS ORDERED: Ondansetron 4 MG Tab.DIS PO PRN (15:14)
[2024-12-13] MEDS ORDERED: Glucagon,Human Recombinant 1 MG Vial IM PRN ×2 (16:56→18:05)
[2024-12-13] MEDS ORDERED: 50% Dextrose in Water 50 ML Syringe IVPUSH PRN ×2 (16:56→18:05)
[2024-12-13] MEDS: cefTRIAXone 1 GM in Sodium Chloride 0.9% 50 ML IV SCH (17:21)
[2024-12-13] MEDS: Insulin Aspart 100 Units/ML 3 ML Pen SUBCUT SCH (17:25)
[2024-12-13] MEDS: Azithromycin 500 MG in Sodium Chloride 0.9% 250 ML IV SCH (17:59)
[2024-12-13] MEDS ORDERED: Albuterol/Ipratropium 3.0-0.5 MG/3 ML Neb Soln NEB PRN (18:00)
[2024-12-14] MEDS: Acetaminophen 325 MG Tab PO PRN (01:03)
[2024-12-14 05:41] LABS: BASOPHILS ABSOLUTE AUTO 0.08 K/uL (0.00-0.20); BASOPHILS PERCENT AUTO 0.4 % (0.0-1.0); EOSINOPHILS ABSOLUTE AUTO 0.08 K/uL (0.00-0.45); EOSINOPHILS PERCENT AUTO 0.4 % (0.0-6.0); HEMATOCRIT 34.1 % (37.0-47.0); IMMATURE GRAN ABSOLUTE AUTO 0.15 K/uL (0.00-0.05); IMMATURE GRAN PERCENT AUTO 0.7 % (0.0-0.4); LYMPHOCYTES ABSOLUTE AUTO 2.46 K/uL (1.00-4.80); LYMPHOCYTES PERCENT AUTO 11.8 % (24.0-44.0); MEAN CORPUSCULAR HEMOGLOBIN 28.7 pg (28.0-32.0); MEAN CORPUSCULAR HGB CONC 32.3 g/dL (32.0-36.0); MEAN PLATELET VOLUME 9.1 fL (9.4-12.3); MONOCYTES ABSOLUTE AUTO 1.05 K/uL (0.00-0.80); NEUTROPHILS PERCENT AUTO 81.7 % (41.0-71.0); PLATELET COUNT,PLT 204 K/uL (150-400); RED BLOOD CELL COUNT 3.83 M/uL (4.10-5.30); WHITE BLOOD CELL COUNT,WBC 20.92 K/uL (3.9-11.3)
[2024-12-14 06:11] LABS: A/G RATIO 0.9 (0.9-1.6); ALBUMIN 2.6 g/dL (3.4-5.0); BILIRUBIN TOTAL 0.5 mg/dL (0.2-1.0); CALCIUM 8.3 mg/dL (8.5-10.1); CARBON DIOXIDE,CO2 27.2 mmol/L (21.0-32.0); CREATININE 1.3 mg/dL (0.6-1.0); EST CRCL DRUG DOSING (CG) 31.79 mL/min; MAGNESIUM 2.1 mg/dL (1.8-2.4); POTASSIUM,K 4.3 mmol/L (3.5-5.1); PROTEIN TOTAL,TP 5.6 g/dL (6.4-8.2)
[2024-12-14] MEDS: Pantoprazole 40 MG in Sodium Chloride 0.9% 10 ML IVPUSH SCH (09:31)
[2024-12-14] MEDS: Insulin Glargine,Human Rec. Analog 100 Units/ML 3 ML Pen SUBCUT SCH (09:43)
[2024-12-14 11:45] VITALS: BP 146/69; PULSE 81
[2024-12-15 05:07] LABS: BORDETELLA PARAPERT IS1001 Not Detected (Not Detected)
== END 2024-12-14 15:00 | disposition home or self-care (01) | DRG 195 ==
LOC: MW.ED 12:24 → MW.MS 15:11 → MW.ED 16:19
PROVIDERS: ADMIT Internal Medicine; ATTEND Internal Medicine
DX: J18.9 Pneumonia, unspecified organism (principal); Z66 Do not resuscitate; G35 Multiple sclerosis; L30.4 Erythema intertrigo; I10 Essential (primary) hypertension; E78.5 Hyperlipidemia, unspecified; E86.0 Dehydration; R09.02 Hypoxemia; Z75.8 Other problems related to medical facilities and other health care; I11.9 Hypertensive heart disease without heart failure; I25.10 Atherosclerotic heart disease of native coronary artery without angina pectoris; E66.9 Obesity, unspecified; E10.9 Type 1 diabetes mellitus without complications; E83.42 Hypomagnesemia; L30.8 Other specified dermatitis; Z79.899 Other long term (current) drug therapy; Z79.4 Long term (current) use of insulin; Z68.34 Body mass index [BMI] 34.0-34.9, adult
CPT/HCPCS: 36415; 71045; 74177; 80053; 81003; 82009; 82803; 82947; 83605; 83690; 83735; 84100; 84484; 85025; 87040 ×2; 87428; 87899 ×2; 93005 ×2; 96361; 96365; 96375; 99285; J2405; J2543; J3475; J7030 ×2; J7040; Q9967; 87486; 87581; 87633; 87641; 93010; 94667; 99222; 99239; A9270-GY; J0456; J0696; J1815-GY; J2470; J7050